=== PATIENT | male | born 1950 | race Caucasian/White ===

== ENCOUNTER 2020-10-27 14:49 | Inpatient (IN) | payer MEDICARE, OTHER ==
[~2020-10-27] VITALS: Ht 165.1 cm; Wt 74.8 kg
--- NOTE | 2020-10-27 14:55 | NUR ---
[id number] FROM HOME FOR SOB, COVID +, BG 450. VS CHECKED. IV ACCESS ON L AC G18. BLOOD DRAW DONE SENT TO LAB. O2 ADMINISTERED 4L/MIN. SATTING AT 97%
[2020-10-27] MEDS ORDERED: DEXAMETHASONE SOD PHOSPHATE 10 MG/ML VIAL IV ONE (15:00)
[2020-10-27] MEDS ORDERED: CEFEPIME 1 GM in IV D5W 50 ML IV ONE (15:00)
[2020-10-27] MEDS ORDERED: VANCOMYCIN 1 GM in IV D5W 250 ML IV ONE (15:00)
[2020-10-27 15:25] LABS: HEMATOCRIT 33 % (39-51); HEMOGLOBIN 11.2 g/dL (13.5-17.5); MEAN CORPUSCULAR HGB CONC 34 g/dl (31.0-36.0); MEAN CORPUSCULAR VOLUME 89 fL (80-96); NEUTROPHILS % (AUTO) 85.8 % (43.0-81.0); PLATELET COUNT (AUTO) 164 /CMM (150-450); RED BLOOD CELL COUNT(AUTO) 3.71 MIL/uL (4.5-6.0)
[2020-10-27 15:26] LABS: BASOPHILS % (AUTO) 0.4 % (0.0-2.0); EOSINOPHILS % (AUTO) 0.1 % (0.0-6.0); LYMPHOCYTES # (AUTO) 0.7 /CMM (0.8-4.8); LYMPHOCYTES % (AUTO) 9.9 % (20.0-44.0); MONOCYTES # (AUTO) 0.3 /CMM (0.1-1.30); MONOCYTES % (AUTO) 3.8 % (2.0-12.0)
[2020-10-27] MEDS ORDERED: DEXAMETHASONE SOD PHOSPHATE 10 MG/ML VIAL ONE (15:30)
[2020-10-27 15:38] LABS: SODIUM SERUM 132 mmol/L (136-145)
[2020-10-27 15:39] LABS: ALANINE AMINOTRANSFERASE 83 U/L (12-78); ALBUMIN 2.7 g/dL (3.4-5.0); ALKALINE PHOSPHATASE 61 U/L (46-116); ASPARTATE AMINOTRANSFERASE 69 U/L (15-37); BILIRUBIN,DIRECT 0.3 mg/dL (0.0-0.2); BILIRUBIN,TOTAL 0.6 mg/dL (0.2-1.0); CALCIUM, SERUM 8.4 mg/dL (8.5-10.1); CARBON DIOXIDE 29 mmol/L (21-32); CHLORIDE 93 mmol/L (98-107); CREATININE 1.2 mg/dL (0.6-1.3); POTASSIUM 3.4 mmol/L (3.5-5.1); TOTAL PROTEIN, SERUM 7.2 g/dL (6.4-8.2); UREA NITROGEN, BLOOD 18 mg/dL (7-18)
[2020-10-27 15:40] LABS: GLUCOSE 392 mg/dL (74-106)
[2020-10-27] MEDS ORDERED: SITA1TAB6 MT (16:00)
[2020-10-27] MEDS ORDERED: TERA5CAP4 PO (16:00)
[2020-10-27] MEDS ORDERED: RAMI5CAP66 PO (16:00)
[2020-10-27] MEDS ORDERED: ASPI-1420 PO (16:00)
[2020-10-27] MEDS ORDERED: FURO20TA4 PO (16:00)
[2020-10-27] MEDS ORDERED: CARV25TA2 PO (16:00)
[2020-10-27] MEDS ORDERED: TICA90TA PO (16:00)
[2020-10-27] MEDS ORDERED: ROSU20TA32 PO (16:00)
[2020-10-27] MEDS ORDERED: DILT-2 PO (16:00)
[2020-10-27] MEDS ORDERED: GLIP10TA21 PO (16:00)
[2020-10-27] MEDS ORDERED: INSU3INS9 SQ (16:00)
[2020-10-27] MEDS ORDERED: TAMS-12 PO (16:00)
[2020-10-27 16:01] LABS: ABG BASE EXCESS -0.2 mmol/L; ABG OXYGEN SATURATION 91.9 % (92.0-98.5); ABG PCO2 29.4 mmHg (35.0-45.0); ABG PH 7.498 (7.350-7.450); ABG PO2 64.5 mmHg (75.0-100.0); AaDO2 158.1 mmHg; COHb 0.4 % (0.5-1.5); MetHb 0.3 % (0.0-1.5); O2Hb 91.3 % (94.0-97.0); SITE, ABG Right Radial; VENT MODE, BG NC 4 L
--- NOTE | 2020-10-27 16:17 | NUR ---
CALLED NURSING SUP FOR TELE BED.
[2020-10-27] MEDS ORDERED: INSULIN REGULAR, HUMAN 100 UNIT/ML 10 ML VIAL SQ ONE (16:30)
--- NOTE | 2020-10-27 16:39 | NUR ---
urine collected sent to lab
[2020-10-27] MEDS ORDERED: POTASSIUM CL. PREMIX PERIPHER. 100 ML ONE (16:44)
[2020-10-27] MEDS: POTASSIUM CL. PREMIX PERIPHER. 50 ML IV SCH ×2 (16:45→17:45)
[2020-10-27 16:56] LABS: BILIRUBIN,URINE NEGATIVE (NEGATIVE); COLOR,URINE YELLOW (YELLOW); LEUKOCYTE ESTERASE ,URINE NEGATIVE (NEGATIVE); NITRITE, URINE NEGATIVE (NEGATIVE); PROTEIN,URINE 30 mg/dl (NEGATIVE); UGLUCOSE >=1000 mg/dL (NEGATIVE); UROBILINOGEN,URINE 0.2 EU/dL (0.2)
[2020-10-27 17:16] LABS: BACTERIA,URINE Few /HPF (None Seen); RBC,URINE 0-2 /HPF (0-2); SQUAMOUS EPITHELIAL CELL,UR Few /HPF (None Seen); WBC,URINE 0-2 /HPF (0-3)
--- NOTE | 2020-10-27 17:18 | NUR ---
room [id number]
[2020-10-27] MEDS ORDERED: ONDANSETRON HCL/PF 4 MG/2 ML VIAL IVP PRN (17:30)
[2020-10-27] MEDS ORDERED: ZOLPIDEM TARTRATE 5 MG TABLET PO PRN (17:30)
[2020-10-27] MEDS ORDERED: IV NS 0.9% 1,000 ML BAG IV ONE (17:30)
[2020-10-27] MEDS ORDERED: MAGNESIUM HYDROXIDE 30 ML UDC PO PRN (17:30)
[2020-10-27] MEDS ORDERED: ACETAMINOPHEN 325 MG TABLET PO PRN (17:30)
[2020-10-27] MEDS ORDERED: DEXTROSE 50%-WATER 50 ML DISP.SYRIN IV PRN (17:30)
[2020-10-27] MEDS ORDERED: Z GUARD REMEDY 2 OZ OINT TP PRN (17:30)
[2020-10-27] MEDS ORDERED: HYDROCODONE/APAP 5/325MG TABLET PO PRN (17:30)
[2020-10-27] MEDS ORDERED: MAG HYDROX/AL HYDROX/SIMETH 30 ML UDC PO PRN (17:30)
[2020-10-27] MEDS ORDERED: CEFEPIME 1 GM in IV D5W 50 ML IV SCH (18:00)
--- NOTE | 2020-10-27 18:26 | NUR ---
called to give report but nmurse is not available yet.
--- NOTE | 2020-10-27 18:52 | NUR ---
report given to timothy paulino
--- NOTE | 2020-10-27 19:10 | NUR ---
RN OPENING NOTE ADMIT 70 YEAR OLD LITHUANIAN MALE,TO [facility] ON TELEMETRY MONITORING,FOR SOB DIAGNOSIS:PNA PATIENT R/O FOR COVID MONITORING FOR CONTACT/DROPLET PRECAUTION,ON 5L OXYGEN VIA NASAL CANNULA O2:93% ALERT ORIENTED X3 VERBALLY RESPONSIVE LITHUANIAN SPEAKER ONLY,CONTINENT TO BOWEL/BLADDER,IV SITE IS ON LEFT AC #18 INTACT PATENT,SAFETY MEASURE IMPLEMENT,BED IS IN LOW POSITION,AND LOCKED,CALL LIGHT WITHIN REACH,CONTINUE TO MONITOR.
--- NOTE | 2020-10-27 19:20 | NUR ---
TRANSFERRED TO [facility]
[2020-10-27 21:00] VITALS: BP 144/51
[2020-10-27] MEDS: DILTIAZEM HCL CD 120 MG PO SCH (21:10)
[2020-10-27] MEDS: ENOXAPARIN SODIUM 40 MG/0.4 ML DISP.SYRIN SQ SCH (21:12)
[2020-10-27] MEDS: BLOOD SUGAR DIAGNOSTIC 1 EACH STRIP VI SCH (22:00)
[2020-10-27] MEDS: INSULIN GLARGINE, 100 UNIT/ML CARTRIDGE SQ SCH (22:54)
[2020-10-28 01:00] VITALS: BP 145/65
[2020-10-28] MEDS: CEFEPIME 2 GM in IV D5W 100 ML IV SCH ×2 (02:40→15:02)
[2020-10-28 05:00] VITALS: BP 157/69
[2020-10-28 06:03] LABS: BASOPHILS % (AUTO) 0.2 % (0.0-2.0); HEMATOCRIT 33 % (39-51); HEMOGLOBIN 11.2 g/dL (13.5-17.5); LYMPHOCYTES # (AUTO) 0.5 /CMM (0.8-4.8); LYMPHOCYTES % (AUTO) 8.6 % (20.0-44.0); MEAN CORPUSCULAR HGB CONC 34 g/dl (31.0-36.0); MEAN CORPUSCULAR VOLUME 88 fL (80-96); MONOCYTES # (AUTO) 0.3 /CMM (0.1-1.30); MONOCYTES % (AUTO) 5.6 % (2.0-12.0); NEUTROPHILS # (AUTO) 5.2 /CMM (1.8-8.9); NEUTROPHILS % (AUTO) 85.6 % (43.0-81.0); PLATELET COUNT (AUTO) 187 /CMM (150-450); RED BLOOD CELL COUNT(AUTO) 3.75 MIL/uL (4.5-6.0); WHITE BLOOD COUNT (AUTO) 6.1 K/uL (4.3-11.0)
[2020-10-28 06:16] LABS: CALCIUM, SERUM 8.5 mg/dL (8.5-10.1); CREATININE 0.8 mg/dL (0.6-1.3); MAGNESIUM 1.6 mg/dL (1.8-2.4); PHOSPHORUS 3.3 mg/dL (2.5-4.9); POTASSIUM 3.6 mmol/L (3.5-5.1)
--- NOTE | 2020-10-28 07:07 | NUR ---
RN CLOSING NOTE PATIENT REMAINS ON ALERT ORIENTED X4 VERBALLY RESPONSIVE PERSIAN SPEAKER ONLY HE IS ON 5L OXYGEN VIA NASAL CANNULA,O2:92% IV SITE IS ON LEFT AC INTACT PATENT,ALL DUE MEDS GIVEN MD ORDERED KEPT CLEAN AND DRY ALL THE TIME,KEPT COMFORTABLE,KEPT CLEAN AND DRY ALL THE TIME,ALL NEED MET ENDORSE NEXT COMING SHIFT FOR CONTINUATION OF CARE
[2020-10-28] MEDS: BLOOD SUGAR DIAGNOSTIC 1 EACH STRIP VI SCH ×4 (07:30→22:33)
--- NOTE | 2020-10-28 07:30 | NUR ---
RN OPENING NOTE PATIENT ALERT ORIENTED X4 VERBALLY RESPONSIVE PALAUAN SPEAKER. HE IS ON 5L OXYGEN VIA NASAL CANNULA,O2:92% IV SITE IS ON LEFT AC INTACT PATENT. ALL SAFETY MEASURES IN PLACE PER HOSPITAL POLICY. CALL LIGHT WITHIN REACH. WILL CONTINUE TO MONITOR AND PROVIDE CARE.
--- NOTE | 2020-10-28 08:15 | NUR ---
MED REFUSAL/AMA PATIENT REFUSED AM ACCUCHECK. EXPLAINED RISKS OF HYPER/HYPOGLYCEMIA. PATIENT REFUSED. PATIENT ALSO ASKED TO LEAVE AGAINST MEDICAL ADVICE. EDUCATION PROVIDED, PATIENT CONTINUED TO REQUEST TO LEAVE. AMA FORM SIGNED.
[2020-10-28 09:00] VITALS: BP 164/73
[2020-10-28] MEDS ORDERED: Medication Not On Formulary EA (Insulin Glargine/Lixisenatide (Soliqua 100 Unit-33 Mcg/m SQ SCH (09:00)
--- NOTE | 2020-10-28 09:10 | NUR ---
AMA UPDATE PATIENT STATED THEY CHANGED THEIR MIND ABOUT THE AMA AND REQUESTED TO STAY UNTIL SEEN BY DOCTOR.
[2020-10-28] MEDS: TAMSULOSIN 0.4 MG CAP.SR.24H PO SCH (09:48)
[2020-10-28] MEDS: ASPIRIN EC 81 MG TABLET.DR PO SCH (09:48)
[2020-10-28] MEDS: DEXAMETHASONE SOD PHOSPHATE 10 MG/ML VIAL IJ SCH (09:49)
[2020-10-28] MEDS: CARVEDILOL 12.5 MG TABLET PO SCH ×2 (09:50→17:29)
[2020-10-28] MEDS: DILTIAZEM HCL CD 120 MG PO SCH ×2 (09:50→22:28)
[2020-10-28] MEDS: TERAZOSIN HCL 5 MG CAPSULE PO SCH (11:38)
[2020-10-28] MEDS: TICAGRELOR 90 MG TABLET PO SCH (11:39)
[2020-10-28] MEDS: Magnesium 1GM/D5W 100ML PREMIX 100 ML IV SCH ×2 (12:12→13:40)
[2020-10-28 13:00] VITALS: BP 160/70
[2020-10-28] MEDS ORDERED: REMDESIVIR (CHARGED) 200 MG, *LOADING DOSE 1 EA in IV NS 0.9% 210 ML IV ONE (16:00)
[2020-10-28] MEDS: RAMIPRIL 5 MG CAPSULE PO SCH (16:32)
[2020-10-28] MEDS: FUROSEMIDE 20 MG TABLET PO SCH (16:32)
[2020-10-28 17:00] VITALS: BP 154/65
[2020-10-28] MEDS: AZITHROMYCIN 500 MG in IV D5W 250 ML IV SCH (17:28)
[2020-10-28] MEDS: ATORVASTATIN 40 MG TABLET PO SCH (17:28)
[2020-10-28] MEDS: INSULIN REGULAR, HUMAN 100 UNIT/ML 3 ML VIAL SQ PRN (17:30)
--- NOTE | 2020-10-28 19:08 | NUR ---
RN CLOSING NOTE PATIENT ALERT ORIENTED X4 VERBALLY RESPONSIVE NIGERIAN SPEAKER. HE IS ON 5L OXYGEN VIA NASAL CANNULA,O2:92% IV SITE IS ON LEFT AC INTACT PATENT. ALL SAFETY MEASURES IN PLACE PER HOSPITAL POLICY. CALL LIGHT WITHIN REACH. WILL ENDORSE TO RAIL PROJECT ENGINEER FOR MEME.
[2020-10-28 21:00] VITALS: BP 136/72
[2020-10-28] MEDS: CEFTRIAXONE 1 G in IV D5W 50 ML IV SCH (22:26)
[2020-10-28] MEDS: ENOXAPARIN SODIUM 40 MG/0.4 ML DISP.SYRIN SQ SCH (22:29)
[2020-10-28] MEDS: *INSULIN REGULAR(HUMULIN R)HUM 100 UNIT/ML VIAL SQ PRN (22:37)
[2020-10-28] MEDS: INSULIN GLARGINE, 100 UNIT/ML CARTRIDGE SQ SCH (22:38)
[2020-10-29 01:00] VITALS: BP 147/61
--- NOTE | 2020-10-29 01:15 | NUR ---
journalism professor note Spoke with Nicole from lab.,pt prelim blood culture, aerobic gram positive cocci in cluster. notified. Pt on already on atb therapy.
[2020-10-29 05:00] VITALS: BP 150/66
--- NOTE | 2020-10-29 06:39 | NUR ---
LEGAL SUPPORT MANAGER NOTE PT IN BED, SLEEPING BUT EASILY AROUSABLE .BREATHING EVEN AND UNLABORED ON NBR 15L. NO SOB OR ACUTE DISTRESS NOTED. DENIES ANY PAIN OR DISCOMFORT.LEFT AC IV SITE PATENT AND INTACT. ALL NEEDS RENDERED. CALL LIGHT WITHIN REACH. BED IN LOWEST POSITION. WILL ENDORSE TO AM NURSE FOR CONTINUITY OF CARE
[2020-10-29 06:41] LABS: BASOPHILS % (AUTO) 0.1 % (0.0-2.0); HEMATOCRIT 34 % (39-51); HEMOGLOBIN 11.6 g/dL (13.5-17.5); LYMPHOCYTES # (AUTO) 0.6 /CMM (0.8-4.8); MEAN CORPUSCULAR HGB CONC 34 g/dl (31.0-36.0); MEAN CORPUSCULAR VOLUME 87 fL (80-96); MONOCYTES # (AUTO) 0.4 /CMM (0.1-1.30); NEUTROPHILS # (AUTO) 7.8 /CMM (1.8-8.9); NEUTROPHILS % (AUTO) 87.9 % (43.0-81.0); PLATELET COUNT (AUTO) 244 /CMM (150-450); RED BLOOD CELL COUNT(AUTO) 3.88 MIL/uL (4.5-6.0); WHITE BLOOD COUNT (AUTO) 8.9 K/uL (4.3-11.0)
[2020-10-29 06:56] LABS: ALBUMIN 2.7 g/dL (3.4-5.0); BILIRUBIN,DIRECT 0.3 mg/dL (0.0-0.2); BILIRUBIN,TOTAL 0.5 mg/dL (0.2-1.0); CREATININE 0.7 mg/dL (0.6-1.3); MAGNESIUM 2.1 mg/dL (1.8-2.4); PHOSPHORUS 3.1 mg/dL (2.5-4.9); POTASSIUM 3.1 mmol/L (3.5-5.1); TOTAL PROTEIN, SERUM 7.4 g/dL (6.4-8.2)
[2020-10-29] MEDS: BLOOD SUGAR DIAGNOSTIC 1 EACH STRIP VI SCH ×4 (07:30→22:11)
--- NOTE | 2020-10-29 07:30 | NUR ---
CHIEF DESIGN DRAFTER OPENING NOTES PATIENT ALERT ORIENTED X4 VERBALLY RESPONSIVE KYRGYZ SPEAKER. HE IS ON 5L OXYGEN VIA NASAL CANNULA,O2:92% IV SITE IS ON LEFT AC INTACT PATENT. NOT IN ANY ACUTE DISTRESS. ALL SAFETY MEASURES IN PLACE PER HOSPITAL POLICY. CALL LIGHT WITHIN REACH. WILL CONTINUE TO MONITOR.
[2020-10-29 07:44] LABS: C-REACTIVE PROTEIN 8.2 mg/dL (0.0-0.9)
[2020-10-29] MEDS: ASPIRIN EC 81 MG TABLET.DR PO SCH (08:18)
[2020-10-29] MEDS: DILTIAZEM HCL CD 120 MG PO SCH ×2 (08:19→20:23)
[2020-10-29] MEDS: TAMSULOSIN 0.4 MG CAP.SR.24H PO SCH (08:19)
[2020-10-29] MEDS: DEXAMETHASONE SOD PHOSPHATE 10 MG/ML VIAL IJ SCH (08:20)
[2020-10-29] MEDS: FUROSEMIDE 20 MG TABLET PO SCH (08:20)
[2020-10-29] MEDS: CARVEDILOL 12.5 MG TABLET PO SCH ×2 (08:20→18:12)
[2020-10-29] MEDS: RAMIPRIL 5 MG CAPSULE PO SCH (08:24)
[2020-10-29] MEDS: TICAGRELOR 90 MG TABLET PO SCH (08:24)
[2020-10-29] MEDS: TERAZOSIN HCL 5 MG CAPSULE PO SCH (08:25)
[2020-10-29 09:00] VITALS: BP 128/74
[2020-10-29] MEDS ORDERED: POTASSIUM CHLORIDE 20 MEQ TAB.PRT.SR PO ONE (09:00)
[2020-10-29] MEDS: INSULIN REGULAR, HUMAN 100 UNIT/ML 3 ML VIAL SQ PRN ×2 (11:02→18:38)
[2020-10-29] MEDS: *INSULIN REGULAR(HUMULIN R)HUM 100 UNIT/ML VIAL SQ PRN ×2 (12:37→22:14)
[2020-10-29 13:00] VITALS: BP 132/75
[2020-10-29 17:00] VITALS: BP 132/75
[2020-10-29] MEDS: AZITHROMYCIN 500 MG in IV D5W 250 ML IV SCH (18:09)
[2020-10-29] MEDS: REMDESIVIR (CHARGED) 100 MG in IV NS 0.9% 230 ML IV SCH (18:09)
[2020-10-29] MEDS: ATORVASTATIN 40 MG TABLET PO SCH (18:12)
[2020-10-29] MEDS: VANCOMYCIN HCL 0.75 GM in IV D5W 250 ML IV SCH (18:35)
--- NOTE | 2020-10-29 18:52 | NUR ---
SYSTEMS INTEGRATION ENGINEER CLOSING NOTES PATIENT REMAINS ALERT ORIENTED X4 VERBALLY RESPONSIVE AND FINNISH SPEAKER. ON NONREBREATHER MASK AT 15 L. IV SITE IS ON LEFT AC INTACT PATENT. ALL SAFETY MEASURES IN PLACE PER HOSPITAL POLICY. CALL LIGHT WITHIN REACH. WILL ENDORSE TO OUTREACH ASSOCIATE FOR MEME.
--- NOTE | 2020-10-29 20:00 | NUR ---
local telephone operator note Received in bed, a/o x4. Breathing even and unlabored with no sob or acute distress noted on 15L of O2 via NBR. O2 saturation 99%. NSR on chief lock operator. Denies any pain or discomfort. LAC iv site patent and intact. All needs rendered. Call light within reach. Bed in lowest position. Will continue to monitor.
[2020-10-29] MEDS: CEFTRIAXONE 1 G in IV D5W 50 ML IV SCH (20:22)
[2020-10-29] MEDS: ENOXAPARIN SODIUM 40 MG/0.4 ML DISP.SYRIN SQ SCH (20:24)
[2020-10-29 21:00] VITALS: BP 146/90
[2020-10-29] MEDS: INSULIN GLARGINE, 100 UNIT/ML CARTRIDGE SQ SCH (22:13)
[2020-10-30] VITALS (7 sets, daily range): BP systolic 132–157; BP diastolic 73–82
[2020-10-30] MEDS: VANCOMYCIN HCL 0.75 GM in IV D5W 250 ML IV SCH ×2 (05:03→17:55)
[2020-10-30 06:32] LABS: BASOPHILS % (AUTO) 0.3 % (0.0-2.0); HEMATOCRIT 33 % (39-51); HEMOGLOBIN 11.2 g/dL (13.5-17.5); LYMPHOCYTES # (AUTO) 0.5 /CMM (0.8-4.8); LYMPHOCYTES % (AUTO) 5.9 % (20.0-44.0); MEAN CORPUSCULAR HGB CONC 34 g/dl (31.0-36.0); MEAN CORPUSCULAR VOLUME 89 fL (80-96); MONOCYTES # (AUTO) 0.4 /CMM (0.1-1.30); MONOCYTES % (AUTO) 3.8 % (2.0-12.0); NEUTROPHILS # (AUTO) 8.4 /CMM (1.8-8.9); PLATELET COUNT (AUTO) 261 /CMM (150-450); RED BLOOD CELL COUNT(AUTO) 3.74 MIL/uL (4.5-6.0); WHITE BLOOD COUNT (AUTO) 9.3 K/uL (4.3-11.0)
--- NOTE | 2020-10-30 06:32 | NUR ---
telegraph plant maintainer note Patient in bed. Sleeping but easily arousable. Breathing even and unlabored with no sob or acute distress noted on 15L via NRB. O2 saturation 99%. Pt appears comfortable in bed. LAC Iv site patent and intact. All needs rendered. Bed in lowest position. Call light within reach. Will endorse to am nurse for continuity of care.
[2020-10-30 06:59] LABS: ALBUMIN 2.5 g/dL (3.4-5.0); BILIRUBIN,DIRECT 0.2 mg/dL (0.0-0.2); BILIRUBIN,TOTAL 0.4 mg/dL (0.2-1.0); CALCIUM, SERUM 8.6 mg/dL (8.5-10.1); CREATININE 0.7 mg/dL (0.6-1.3); TOTAL PROTEIN, SERUM 7.2 g/dL (6.4-8.2)
[2020-10-30 07:48] LABS: ABG BASE EXCESS -3.4 mmol/L; ABG OXYGEN SATURATION 98.5 % (92.0-98.5); ABG PCO2 28.2 mmHg (35.0-45.0); ABG PH 7.449 (7.350-7.450); ABG PO2 125.2 mmHg (75.0-100.0); AaDO2 559.6 mmHg; COHb 0.8 % (0.5-1.5); MetHb 0.3 % (0.0-1.5); O2Hb 97.4 % (94.0-97.0); SITE, ABG Right Radial; VENT MODE, BG NON REBREATHER
--- NOTE | 2020-10-30 07:55 | NUR ---
RN OPENING NOTES PATIENT IS IN BED. ALERT ORIENTED X4 ROMANIAN SPEAKING. PT IS MASK:94% IV SITE IS ON LEFT AC INTACT PATENT. NOT IN ANY ACUTE DISTRESS. ALL SAFETY MEASURES IN PLACE PER HOSPITAL POLICY. BED IS IN THE LOWEST POSITION. LOCKED AND SIDE RAILS ARE UP X2.CALL LIGHT WITHIN REACH. WILL CONTINUE TO MONITOR
[2020-10-30] MEDS: ASPIRIN EC 81 MG TABLET.DR PO SCH (09:50)
[2020-10-30] MEDS: BLOOD SUGAR DIAGNOSTIC 1 EACH STRIP VI SCH ×4 (09:50→21:21)
[2020-10-30] MEDS: FUROSEMIDE 20 MG TABLET PO SCH (09:50)
[2020-10-30] MEDS: DEXAMETHASONE SOD PHOSPHATE 10 MG/ML VIAL IJ SCH (09:50)
[2020-10-30] MEDS: DILTIAZEM HCL CD 120 MG PO SCH ×2 (09:51→20:26)
[2020-10-30] MEDS: TAMSULOSIN 0.4 MG CAP.SR.24H PO SCH (09:51)
[2020-10-30] MEDS: CARVEDILOL 12.5 MG TABLET PO SCH ×2 (09:52→17:55)
[2020-10-30] MEDS: TERAZOSIN HCL 5 MG CAPSULE PO SCH (09:57)
[2020-10-30] MEDS: RAMIPRIL 5 MG CAPSULE PO SCH (09:57)
[2020-10-30] MEDS: TICAGRELOR 90 MG TABLET PO SCH (09:57)
[2020-10-30] MEDS: INSULIN REGULAR, HUMAN 100 UNIT/ML 3 ML VIAL SQ PRN ×3 (10:30→18:23)
--- NOTE | 2020-10-30 14:00 | NUR ---
RN NOTES PT HAS NO RESPIRATORY DISTRESS OR SOB
[2020-10-30] MEDS: ATORVASTATIN 40 MG TABLET PO SCH (17:55)
[2020-10-30] MEDS: AZITHROMYCIN 500 MG in IV D5W 250 ML IV SCH (17:55)
[2020-10-30] MEDS: REMDESIVIR (CHARGED) 100 MG in IV NS 0.9% 230 ML IV SCH (17:55)
--- NOTE | 2020-10-30 18:53 | NUR ---
RN CLOSING NOTES PATIENT IS IN BED. ALERT ORIENTED X4 KISWAHILI SPEAKING. PT IS ON 15 L NON-BREATHER MASK:95% IV SITE IS ON LEFT AC INTACT PATENT. NOT IN ANY ACUTE DISTRESS. ALL SAFETY MEASURES IN PLACE PER HOSPITAL POLICY. BED IS IN THE LOWEST POSITION. LOCKED AND SIDE RAILS ARE UP X2.CALL LIGHT WITHIN REACH. WILL ENDORSE TO PM NURSE FOR MEME
--- NOTE | 2020-10-30 19:30 | NUR ---
LEGAL CASHIER OPENING NOTES RECEIVED PATIENT IN BED, ALERT AND ORIENTED X 3. VERBALLY RESPONSIVE AND ABLE TO FOLLOW DIRECTIONS. BREATHING REGULAR AND UNLABORED ON NON-REBREATHER MASK AT 15L/MIN, LATEST SPO2 99%. LEFT AC G18 IV LINE INTACT AND PATENT, FLUSHING WELL WITH NO BLEEDING OR S/S OF INFILTRATION NOTED. ON CARDIAC MONITORING WITH NSR AT 65bpm. DENIES PAIN/DISCOMFORT AT THIS TIME. BED LOW AND LOCKED ON SEMI FOWLERS POSITION. CALL LIGHT IN REACH. ON ISOLATION FOR COVID19, PROPER HAND WASHING AND ISOLATION PRECAUTIONS OBSERVED. WILL CONTINUE TO MONITOR.
--- NOTE | 2020-10-30 20:00 | NUR ---
PARKING LOT CHAUFFEUR NOTES INSERTED NEW IV LINE ON RIGHT FOREARM G22, FLUSHING WELL WITH GOOD BLOOD BACKFLOW.
[2020-10-30] MEDS: CEFTRIAXONE 1 G in IV D5W 50 ML IV SCH (20:25)
[2020-10-30] MEDS: ENOXAPARIN SODIUM 40 MG/0.4 ML DISP.SYRIN SQ SCH (20:40)
[2020-10-30] MEDS: INSULIN GLARGINE, 100 UNIT/ML CARTRIDGE SQ SCH (21:22)
[2020-10-30] MEDS: *INSULIN REGULAR(HUMULIN R)HUM 100 UNIT/ML VIAL SQ PRN (21:25)
[2020-10-31 01:00] VITALS: BP 148/64
[2020-10-31 05:00] VITALS: BP 148/89
--- NOTE | 2020-10-31 06:35 | NUR ---
MANAGER RESEARCH DEVELOPMENT CLOSING NOTES PATIENT IN BED, ALERT AND ORIENTED X 3. AFEBRILE WITH NO S/S OF DISTRESS OBSERVED. RIGHT HAND G20 IV LINE PATENT AND FLUSHING WELL. MAINTAINED ON CARDIAC MONITORING WITH NSR AT 68bpm. NO COMPLAINTS OF PAIN/DISCOMFORT REPORTED AT THIS TIME. BED LOW AND LOCKED ON SEMI FOWLERS POSITION. CALL LIGHT IN REACH. WILL ENDORSE TO MORNING SHIFT FOR MEME.
[2020-10-31 06:49] LABS: BASOPHILS % (AUTO) 0.1 % (0.0-2.0); HEMATOCRIT 35 % (39-51); HEMOGLOBIN 11.8 g/dL (13.5-17.5); LYMPHOCYTES # (AUTO) 0.5 /CMM (0.8-4.8); LYMPHOCYTES % (AUTO) 4.6 % (20.0-44.0); MEAN CORPUSCULAR HGB CONC 34 g/dl (31.0-36.0); MEAN CORPUSCULAR VOLUME 87 fL (80-96); MONOCYTES # (AUTO) 0.3 /CMM (0.1-1.30); MONOCYTES % (AUTO) 2.5 % (2.0-12.0); NEUTROPHILS # (AUTO) 9.3 /CMM (1.8-8.9); NEUTROPHILS % (AUTO) 92.8 % (43.0-81.0); PLATELET COUNT (AUTO) 275 /CMM (150-450); RED BLOOD CELL COUNT(AUTO) 3.95 MIL/uL (4.5-6.0); WHITE BLOOD COUNT (AUTO) 10.1 K/uL (4.3-11.0)
[2020-10-31 07:22] LABS: CALCIUM, SERUM 8.6 mg/dL (8.5-10.1); CREATININE 0.6 mg/dL (0.6-1.3); POTASSIUM 3.7 mmol/L (3.5-5.1)
--- NOTE | 2020-10-31 08:04 | NUR ---
SUPPLY CHAIN TECHNICIAN OPEN NOTES PATIENT IS AWAKE A/O X 3 WITH NO SIGNS OF DISTRESS ON A NON-REBREATHER AT 15 L/MIN SPO2 97%. IV R HAND #20G SL. NO COMPLAIN OF PAIN AT THIS TIME. TELE MONITOR NSR. SAFETY MEASURES ARE APPLIED, BED IS IN LOW POSITION SIDE RAILS UP X 2. CALL LIGHT WITHIN REACH. WILL CONTINUE TO MONITOR.
[2020-10-31] MEDS: VANCOMYCIN HCL 0.75 GM in IV D5W 250 ML IV SCH (08:36)
[2020-10-31 08:50] LABS: ABG BASE EXCESS -3.7 mmol/L; ABG PCO2 27.9 mmHg (35.0-45.0); ABG PH 7.446 (7.350-7.450); ABG PO2 64.3 mmHg (75.0-100.0); AaDO2 476.8 mmHg; COHb 1.4 % (0.5-1.5); MetHb 0.3 % (0.0-1.5); O2Hb 91.4 % (94.0-97.0); SITE, ABG Right Radial; VENT MODE, BG NRB
[2020-10-31 09:00] VITALS: BP 145/80
[2020-10-31 09:04] LABS: ALBUMIN 2.6 g/dL (3.4-5.0); BILIRUBIN,DIRECT 0.2 mg/dL (0.0-0.2); BILIRUBIN,TOTAL 0.5 mg/dL (0.2-1.0); TOTAL PROTEIN, SERUM 7.4 g/dL (6.4-8.2)
[2020-10-31] MEDS: RAMIPRIL 5 MG CAPSULE PO SCH (09:14)
[2020-10-31] MEDS: TICAGRELOR 90 MG TABLET PO SCH (09:15)
[2020-10-31] MEDS: TERAZOSIN HCL 5 MG CAPSULE PO SCH (09:16)
[2020-10-31] MEDS: BLOOD SUGAR DIAGNOSTIC 1 EACH STRIP VI SCH ×4 (09:17→21:51)
[2020-10-31] MEDS: TAMSULOSIN 0.4 MG CAP.SR.24H PO SCH (09:17)
[2020-10-31] MEDS: FUROSEMIDE 20 MG TABLET PO SCH (09:17)
[2020-10-31] MEDS: ASPIRIN EC 81 MG TABLET.DR PO SCH (09:17)
[2020-10-31] MEDS: DILTIAZEM HCL CD 120 MG PO SCH ×2 (09:17→20:47)
[2020-10-31] MEDS: DEXAMETHASONE SOD PHOSPHATE 10 MG/ML VIAL IJ SCH (09:18)
[2020-10-31] MEDS: INSULIN REGULAR, HUMAN 100 UNIT/ML 3 ML VIAL SQ PRN ×3 (09:20→16:52)
[2020-10-31] MEDS: CARVEDILOL 12.5 MG TABLET PO SCH ×2 (09:41→16:49)
[2020-10-31 13:00] VITALS: BP 137/57
[2020-10-31] MEDS: REMDESIVIR (CHARGED) 100 MG in IV NS 0.9% 230 ML IV SCH (16:48)
[2020-10-31] MEDS: ATORVASTATIN 40 MG TABLET PO SCH (16:53)
[2020-10-31 17:00] VITALS: BP 128/75
[2020-10-31] MEDS: AZITHROMYCIN 500 MG in IV D5W 250 ML IV SCH (17:54)
[2020-10-31] MEDS: VANCOMYCIN 1 GM in IV D5W 250 ML IV SCH (19:18)
--- NOTE | 2020-10-31 19:55 | NUR ---
RN NOTES PATIENT IS AWAKE A/O X 3. RESPIRATIONS EVEN AND UNLABORED. ON O2 VIA NON-REBREATHER @ 15LPM, SPO2 97%. IV R HAND #20G SL, INTACT AND PATENT. DENIES ANY PAIN OR DISCOMFORT AT THIS TIME. TELE MONITOR NSR. BED LOCKED AND IN LOWEST POSITION. SIDE RAILS UP X2. SAFETY MEASURES IMPLEMENTED. CALL LIGHT WITHIN REACH. WILL CONTINUE TO MONITOR.
--- NOTE | 2020-10-31 20:14 | NUR ---
HARDWOOD FLOOR LAYER CLOSED NOTES PATIENT IS AWAKE A/O X 3 WITH NO SIGNS OF DISTRESS ON A NON-REBREATHER AT 15 L/MIN SPO2 97%. IV R FA #20G SL. NO COMPLAIN OF PAIN AT THIS TIME. TELE MONITOR NSR. PATIENT KEPT CLEAN AND DRY. ALL NEEDS, CARE, TREATMENT,AND MEDICATIONS WERE ADMINISTERED ANTICIPATED PER ORDER. SAFETY MEASURES ARE APPLIED, BED IS IN LOW POSITION SIDE RAILS UP X 2. CALL LIGHT WITHIN REACH WILL ENDORSE TO THE CANDLE EXTRUSION MACHINE OPERATOR NURSE.
[2020-10-31] MEDS: ENOXAPARIN SODIUM 40 MG/0.4 ML DISP.SYRIN SQ SCH (20:33)
[2020-10-31] MEDS: CEFTRIAXONE 1 G in IV D5W 50 ML IV SCH (20:47)
[2020-10-31 21:00] VITALS: BP 134/74
[2020-10-31] MEDS: *INSULIN REGULAR(HUMULIN R)HUM 100 UNIT/ML VIAL SQ PRN (21:44)
[2020-10-31] MEDS: INSULIN GLARGINE, 100 UNIT/ML CARTRIDGE SQ SCH (21:45)
[2020-11-01] VITALS (9 sets, daily range): BP systolic 118–154; BP diastolic 50–76
[2020-11-01] MEDS: VANCOMYCIN 1 GM in IV D5W 250 ML IV SCH (05:06)
--- NOTE | 2020-11-01 06:46 | NUR ---
RN NOTES PATIENT IS AWAKE A/O X 3. RESPIRATIONS EVEN AND UNLABORED. ON O2 VIA NON-REBREATHER @ 15LPM, SPO2 93%. PATIENT NEEDS FREQUENT REMINDERS TO PUT NON-REBREATHER ON. IV R HAND #20G SL, INTACT AND PATENT. DENIES ANY PAIN OR DISCOMFORT AT THIS TIME. TELE MONITOR NSR 70'S. ALL DUE MEDS GIVEN PER MD ORDER. NEEDS ATTENDED PROMPTLY. BED LOCKED AND IN LOWEST POSITION. SIDE RAILS UP X2. SAFETY MEASURES IMPLEMENTED. CALL LIGHT WITHIN REACH. WILL ENDORSE TO ONCOMING SHIFT.
--- NOTE | 2020-11-01 07:36 | NUR ---
EDGE STAINER OPEN NOTES PATIENT IS AWAKE A/O X 3 WITH NO SIGNS OF DISTRESS ON A NON-REBREATHER AT 15 L/MIN SPO2 98%. IV R FA #20G SL. NO COMPLAIN OF PAIN AT THIS TIME. TELE MONITOR NSR. SAFETY MEASURES ARE APPLIED, BED IS IN LOW POSITION SIDE RAILS UP X 2. CALL LIGHT WITHIN REACH. WILL CONTINUE TO MONITOR.
[2020-11-01 08:01] LABS: BASOPHILS % (AUTO) 0.4 % (0.0-2.0); EOSINOPHILS % (AUTO) 0.1 % (0.0-6.0); HEMATOCRIT 35 % (39-51); LYMPHOCYTES # (AUTO) 0.4 /CMM (0.8-4.8); LYMPHOCYTES % (AUTO) 4.8 % (20.0-44.0); MEAN CORPUSCULAR HGB CONC 34 g/dl (31.0-36.0); MEAN CORPUSCULAR VOLUME 87 fL (80-96); MONOCYTES # (AUTO) 0.2 /CMM (0.1-1.30); MONOCYTES % (AUTO) 2.3 % (2.0-12.0); NEUTROPHILS # (AUTO) 8.4 /CMM (1.8-8.9); NEUTROPHILS % (AUTO) 92.4 % (43.0-81.0); PLATELET COUNT (AUTO) 266 /CMM (150-450); RED BLOOD CELL COUNT(AUTO) 4.07 MIL/uL (4.5-6.0); WHITE BLOOD COUNT (AUTO) 9.1 K/uL (4.3-11.0)
[2020-11-01 08:27] LABS: ALBUMIN 2.6 g/dL (3.4-5.0); BILIRUBIN,DIRECT 0.2 mg/dL (0.0-0.2); BILIRUBIN,TOTAL 0.5 mg/dL (0.2-1.0); CALCIUM, SERUM 8.3 mg/dL (8.5-10.1); CREATININE 0.8 mg/dL (0.6-1.3); POTASSIUM 3.3 mmol/L (3.5-5.1); TOTAL PROTEIN, SERUM 7.3 g/dL (6.4-8.2)
[2020-11-01] MEDS: BLOOD SUGAR DIAGNOSTIC 1 EACH STRIP VI SCH ×4 (08:33→22:59)
[2020-11-01] MEDS: DEXAMETHASONE SOD PHOSPHATE 10 MG/ML VIAL IJ SCH (08:33)
[2020-11-01] MEDS: DILTIAZEM HCL CD 120 MG PO SCH ×2 (08:34→20:51)
[2020-11-01] MEDS: FUROSEMIDE 20 MG TABLET PO SCH (08:35)
[2020-11-01] MEDS: TAMSULOSIN 0.4 MG CAP.SR.24H PO SCH (08:35)
[2020-11-01] MEDS: ASPIRIN EC 81 MG TABLET.DR PO SCH (08:35)
[2020-11-01] MEDS: CARVEDILOL 12.5 MG TABLET PO SCH ×2 (08:35→16:44)
[2020-11-01] MEDS: RAMIPRIL 5 MG CAPSULE PO SCH (08:37)
[2020-11-01] MEDS: TICAGRELOR 90 MG TABLET PO SCH (08:37)
[2020-11-01] MEDS: TERAZOSIN HCL 5 MG CAPSULE PO SCH (08:38)
[2020-11-01] MEDS: *INSULIN REGULAR(HUMULIN R)HUM 100 UNIT/ML VIAL SQ PRN ×2 (08:41→22:54)
[2020-11-01] MEDS: POTASSIUM CHLORIDE 20 MEQ TAB.PRT.SR PO SCH ×2 (11:30→12:48)
[2020-11-01] MEDS ORDERED: POTASSIUM CHLORIDE 20 MEQ TAB.PRT.SR PO SCH (13:00)
[2020-11-01] MEDS: INSULIN REGULAR, HUMAN 100 UNIT/ML 3 ML VIAL SQ PRN ×2 (13:31→16:46)
[2020-11-01] MEDS: REMDESIVIR (CHARGED) 100 MG in IV NS 0.9% 230 ML IV SCH (15:44)
[2020-11-01] MEDS: ATORVASTATIN 40 MG TABLET PO SCH (16:52)
--- NOTE | 2020-11-01 19:30 | NUR ---
CASH APPLICATIONS REPRESENTATIVE CLOSED NOTES PATIENT IS AWAKE A/O X 3 WITH NO SIGNS OF DISTRESS ON A NON-REBREATHER AT 15 L/MIN SPO2 99%. IV R FA #20G SL. NO COMPLAIN OF PAIN AT THIS TIME. TELE MONITOR NSR. PATIENT KEPT CLEAN AND DRY. ALL NEEDS, CARE, TREATMENT,AND MEDICATIONS WERE ADMINISTERED ANTICIPATED PER ORDER. SAFETY MEASURES ARE APPLIED, BED IS IN LOW POSITION SIDE RAILS UP X 2. CALL LIGHT WITHIN REACH WILL ENDORSE TO THE RN ASSESSMENT NURSE.
--- NOTE | 2020-11-01 19:56 | NUR ---
RN NOTES PATIENT IS AWAKE A/O X 3. BREATHING EVEN AND UNLABORED. ON O2 VIA NON-REBREATHER @ 15LPM, SPO2 99%. IV R HAND #20G SL, INTACT AND PATENT. DENIES ANY PAIN OR DISCOMFORT AT THIS TIME. TELE MONITOR NSR. ALL NEEDS ATTENDED PROMPTLY. BED LOCKED AND IN LOWEST POSITION. SIDE RAILS UP X2. SAFETY MEASURES IMPLEMENTED. CALL LIGHT WITHIN REACH. WILL CONTINUE TO MONITOR.
[2020-11-01] MEDS: ENOXAPARIN SODIUM 40 MG/0.4 ML DISP.SYRIN SQ SCH (20:52)
[2020-11-01] MEDS: INSULIN GLARGINE, 100 UNIT/ML CARTRIDGE SQ SCH (22:55)
[2020-11-02] VITALS (9 sets, daily range): BP systolic 112–145; BP diastolic 47–77
[2020-11-02 06:18] LABS: BASOPHILS % (AUTO) 0.1 % (0.0-2.0); EOSINOPHILS % (AUTO) 0.1 % (0.0-6.0); HEMATOCRIT 38 % (39-51); HEMOGLOBIN 12.8 g/dL (13.5-17.5); LYMPHOCYTES # (AUTO) 0.4 /CMM (0.8-4.8); LYMPHOCYTES % (AUTO) 4.2 % (20.0-44.0); MEAN CORPUSCULAR HGB CONC 34 g/dl (31.0-36.0); MEAN CORPUSCULAR VOLUME 88 fL (80-96); MONOCYTES # (AUTO) 0.3 /CMM (0.1-1.30); MONOCYTES % (AUTO) 3.1 % (2.0-12.0); NEUTROPHILS # (AUTO) 9.2 /CMM (1.8-8.9); NEUTROPHILS % (AUTO) 92.5 % (43.0-81.0); PLATELET COUNT (AUTO) 339 /CMM (150-450); RED BLOOD CELL COUNT(AUTO) 4.33 MIL/uL (4.5-6.0); WHITE BLOOD COUNT (AUTO) 9.9 K/uL (4.3-11.0)
[2020-11-02 07:21] LABS: ALBUMIN 2.9 g/dL (3.4-5.0); BILIRUBIN,DIRECT 0.3 mg/dL (0.0-0.2); BILIRUBIN,TOTAL 0.6 mg/dL (0.2-1.0); CALCIUM, SERUM 8.9 mg/dL (8.5-10.1); CREATININE 0.8 mg/dL (0.6-1.3); POTASSIUM 3.4 mmol/L (3.5-5.1)
[2020-11-02 07:40] LABS: C-REACTIVE PROTEIN 4.8 mg/dL (0.0-0.9)
--- NOTE | 2020-11-02 07:42 | NUR ---
RN NOTES PATIENT IS AWAKE A/O X 3. BREATHING EVEN AND UNLABORED. ON O2 VIA NON-REBREATHER @ 15LPM, SPO2 94%. IV R HAND #20G SL, INTACT AND PATENT. DENIES ANY PAIN OR DISCOMFORT AT THIS TIME. TELE MONITOR NSR. ALL DUE MEDS GIVEN ORDERED BY MD AND TOLERATED WELL. NO ASE NOTED. BED LOCKED AND IN LOWEST POSITION. SIDE RAILS UP X2. SAFETY MEASURES IMPLEMENTED. CALL LIGHT WITHIN REACH. ENDORSED TO ONCOMING SHIFT
--- NOTE | 2020-11-02 08:00 | NUR ---
RN Opening note Received patient in bed, AO x 2-3, restlessness, removed gown, director of cardiac cath lab, able to responds all, Pt does no c/o pain or distress. Skin is warm to touch keep clean/dry intact IV site, respiratory even and unlabored with NRM at 15L. Kept locked bed with elevated HOB for aspiration precaution and ensure airway and lowest bed foe safety. Call light within reach, will continue to monitor.
[2020-11-02] MEDS: CARVEDILOL 12.5 MG TABLET PO SCH ×2 (08:30→17:25)
[2020-11-02] MEDS: ASPIRIN EC 81 MG TABLET.DR PO SCH (08:31)
[2020-11-02] MEDS: FUROSEMIDE 20 MG TABLET PO SCH (08:31)
[2020-11-02] MEDS: DILTIAZEM HCL CD 120 MG PO SCH ×2 (08:31→22:56)
[2020-11-02] MEDS: TAMSULOSIN 0.4 MG CAP.SR.24H PO SCH (08:31)
[2020-11-02] MEDS: DEXAMETHASONE SOD PHOSPHATE 10 MG/ML VIAL IJ SCH (08:31)
[2020-11-02] MEDS: TERAZOSIN HCL 5 MG CAPSULE PO SCH (08:36)
[2020-11-02] MEDS: TICAGRELOR 90 MG TABLET PO SCH (08:37)
[2020-11-02] MEDS: BLOOD SUGAR DIAGNOSTIC 1 EACH STRIP VI SCH ×4 (08:38→23:09)
[2020-11-02] MEDS: RAMIPRIL 5 MG CAPSULE PO SCH (08:39)
--- NOTE | 2020-11-02 13:30 | NUR ---
Patient going have plasma, obtained sign from Son/Solomon, Serob over the phone.
--- NOTE | 2020-11-02 16:00 | NUR ---
Patient finished Plasma transfusion, no s/s of adverse reaction observed, no skin rash, itchiness or fever observed. Will continue to monitor.
[2020-11-02] MEDS: *INSULIN REGULAR(HUMULIN R)HUM 100 UNIT/ML VIAL SQ PRN (17:21)
[2020-11-02] MEDS: ATORVASTATIN 40 MG TABLET PO SCH (17:25)
--- NOTE | 2020-11-02 18:00 | NUR ---
RN Closing note Patient in bed finished meal, does no appears pain or discomfort. Respiratory even an d unlabored with NRM at 15L and O2sat 90-92%, pt noticed taking off the mask frequently. Skin is warm to toud keep clean/dry, intact IV site. Kept locked bed with elevated HOB for ensure airway and aspiration precaution and lowest bed for safety. Call, light within reach will endorse layout designer.
[2020-11-02] MEDS: INSULIN GLARGINE, 100 UNIT/ML CARTRIDGE SQ SCH (22:00)
--- NOTE | 2020-11-02 22:45 | NUR ---
TELE/RN NOTES RECEIVED REPORT FROM CHARGE NURSE FOR MEME. PATIENT IN NO SIGNS OF DISTRESS.
[2020-11-02] MEDS: ENOXAPARIN SODIUM 40 MG/0.4 ML DISP.SYRIN SQ SCH (22:58)
[2020-11-03] VITALS (7 sets, daily range): BP systolic 115–135; BP diastolic 62–76
--- NOTE | 2020-11-03 06:45 | NUR ---
TELE/RN CLOSING NOTES PATIENT SLEEPING IN BED. PATIENT IS ALERT AND ORIENTED X 2. BREATHING IS EVEN AND UNLABORED. NO SIGNS OF SOB OR RESPIRATORY DISTRESS NOTED. PATIENT HAS IV ACCESS ON RIGHT FA #20G SL. PATIENT WAS RESTLESS THIS MORNING, REMOVING NON REBREATHER MASK AND TELE BOX, RISK AND BENEFITS HAVE BEEN EXAMPLE TO THE PATIENT. ALL NEED HAVE BEEN MET DURING SHIFT. SAFETY MEASURES ARE IN PLACE, BED IS LOCKED AND PLACED IN THE LOW POSITION, SIDE RAILS UP X 2. CALL LIGHT IS WITHIN REACH. WILL ENDORSE CARE TO DAY SHIFT.
[2020-11-03] MEDS: BLOOD SUGAR DIAGNOSTIC 1 EACH STRIP VI SCH ×4 (07:30→22:04)
--- NOTE | 2020-11-03 07:30 | NUR ---
EXPLOSIVES WORKER OPENING NOTES PATIENT IS AWAKE A/O X 3 WITH NO SIGNS OF DISTRESS ON A NON-REBREATHER AT 15 L/MIN SPO2 98%. IV R FA #20G SL. NO COMPLAIN OF PAIN AT THIS TIME. TELE MONITOR NSR. SAFETY MEASURES ARE APPLIED, BED IS IN LOW POSITION SIDE RAILS UP X 2. CALL LIGHT WITHIN REACH. WILL CONTINUE TO MONITOR.
[2020-11-03] MEDS: *INSULIN REGULAR(HUMULIN R)HUM 100 UNIT/ML VIAL SQ PRN ×2 (09:17→22:03)
[2020-11-03] MEDS: FUROSEMIDE 20 MG TABLET PO SCH (09:19)
[2020-11-03] MEDS: TAMSULOSIN 0.4 MG CAP.SR.24H PO SCH (09:19)
[2020-11-03] MEDS: ASPIRIN EC 81 MG TABLET.DR PO SCH (09:19)
[2020-11-03] MEDS: DILTIAZEM HCL CD 120 MG PO SCH ×2 (09:20→21:48)
[2020-11-03] MEDS: DEXAMETHASONE SOD PHOSPHATE 10 MG/ML VIAL IJ SCH (09:22)
[2020-11-03] MEDS: CARVEDILOL 12.5 MG TABLET PO SCH ×2 (09:22→17:51)
[2020-11-03] MEDS: RAMIPRIL 5 MG CAPSULE PO SCH (09:28)
[2020-11-03] MEDS: TERAZOSIN HCL 5 MG CAPSULE PO SCH (09:28)
[2020-11-03] MEDS: TICAGRELOR 90 MG TABLET PO SCH (09:28)
[2020-11-03] MEDS: ATORVASTATIN 40 MG TABLET PO SCH (17:51)
[2020-11-03] MEDS: INSULIN REGULAR, HUMAN 100 UNIT/ML 3 ML VIAL SQ PRN (18:16)
--- NOTE | 2020-11-03 18:23 | NUR ---
REGULATORY AFFAIRS INTERNSHIP CLOSING NOTES PATIENT IS AWAKE A/O X 3.NOT IN ANY ACUTE DISTRESS. ON A NON-REBREATHER AT 15 L/MIN SPO2 99%. IV R FA #20G SL. NO COMPLAIN OF PAIN AT THIS TIME. TELE MONITOR NSR. PATIENT KEPT CLEAN AND DRY. ALL NEEDS, CARE, TREATMENT,AND MEDICATIONS WERE ADMINISTERED ANTICIPATED PER ORDER. SAFETY MEASURES ARE APPLIED, BED IS IN LOW POSITION SIDE RAILS UP X 2. CALL LIGHT WITHIN REACH. WILL EDORSE TO NEXT SHIFT FOR MEME.
--- NOTE | 2020-11-03 20:00 | NUR ---
LOAN COLLECTOR NOTES PT IN BED AWAKE A/OX 3, NO DISTRESS OR DISCOMFORT NOTED NO S/S OF PAIN NOTED. ON NRB MASK 15L O2 SAT 96%. ON TELE MONITOR SR 71. SIDE RAILS UP X 2 AND CALL LIGHT WITHIN REACH. VSS. CONTINUE TO MONITOR HIM.
[2020-11-03] MEDS: ENOXAPARIN SODIUM 40 MG/0.4 ML DISP.SYRIN SQ SCH (21:48)
[2020-11-03] MEDS: INSULIN GLARGINE, 100 UNIT/ML CARTRIDGE SQ SCH (22:00)
[2020-11-04 01:00] VITALS: BP 128/65
[2020-11-04 05:00] VITALS: BP 122/68
[2020-11-04 06:21] LABS: BASOPHILS % (AUTO) 0.1 % (0.0-2.0); EOSINOPHILS % (AUTO) 0.3 % (0.0-6.0); HEMATOCRIT 35 % (39-51); HEMOGLOBIN 11.9 g/dL (13.5-17.5); LYMPHOCYTES # (AUTO) 0.5 /CMM (0.8-4.8); LYMPHOCYTES % (AUTO) 5.3 % (20.0-44.0); MEAN CORPUSCULAR HGB CONC 34 g/dl (31.0-36.0); MEAN CORPUSCULAR VOLUME 88 fL (80-96); MONOCYTES # (AUTO) 0.3 /CMM (0.1-1.30); MONOCYTES % (AUTO) 3.3 % (2.0-12.0); NEUTROPHILS # (AUTO) 8.5 /CMM (1.8-8.9); PLATELET COUNT (AUTO) 329 /CMM (150-450); RED BLOOD CELL COUNT(AUTO) 4.04 MIL/uL (4.5-6.0); WHITE BLOOD COUNT (AUTO) 9.4 K/uL (4.3-11.0)
--- NOTE | 2020-11-04 06:23 | NUR ---
BICYCLE ASSEMBLER NOTE PT IN BED ASLEEP, AROUSABLE. NO DISTRESS OR DISCOMFORT NOTED. DENIES PAIN. REMAIN ON NRB MASK 15L O2 SAT 96%, ALL NEEDS ATTENDED. ON TELE SR WITH PVC'S HR 60. SIDE RAILS UP X 2 AND CALL LIGHT WITHIN REACH. WILL ENDORSE TO DAY SHIFT NURSE FOR CONTINUE TO CARE.
[2020-11-04 06:42] LABS: CALCIUM, SERUM 8.6 mg/dL (8.5-10.1); CREATININE 0.8 mg/dL (0.6-1.3); MAGNESIUM 2.1 mg/dL (1.8-2.4); PHOSPHORUS 3.7 mg/dL (2.5-4.9)
--- NOTE | 2020-11-04 07:44 | NUR ---
WOUND CARE CONSULT: REVIEWED CHART,NURSING DOCUMENTATION AND PHOTO WHICH INDICATES SCROTAL REDNESS. RECOMMENDATIONS MDE FOR SKIN CARE AND PROTECTION. DISCUSSED WITH STAFF. MD IN AGREEMENT WITH PLAN OF CARE.
--- NOTE | 2020-11-04 08:08 | NUR ---
TELE/RN OPENING NOTES RECEIVED PATIENT ON BED AWAKE, ALERT AND ORIENTED X 2-3. PATIENT IN NO APPARENT RESPIRATORY DISTRESS NOTED. NO COMPLAINED OF PAIN AT THIS TIME. ON NON REBREATHER MASK AT 15L/MIN TOLERATING WELL. TELE MONITOR READING SINUS RHYTHM 71 BPM. WILL CONTINUE TO MONITOR.
[2020-11-04] MEDS: BLOOD SUGAR DIAGNOSTIC 1 EACH STRIP VI SCH ×4 (08:44→21:25)
[2020-11-04] MEDS: INSULIN REGULAR, HUMAN 100 UNIT/ML 3 ML VIAL SQ PRN ×3 (08:49→17:08)
[2020-11-04 09:00] VITALS: BP 117/69
[2020-11-04] MEDS: DILTIAZEM HCL CD 120 MG PO SCH ×2 (09:00→21:25)
[2020-11-04] MEDS: CARVEDILOL 12.5 MG TABLET PO SCH ×2 (09:00→17:00)
[2020-11-04] MEDS: ASPIRIN EC 81 MG TABLET.DR PO SCH (09:15)
[2020-11-04] MEDS: FUROSEMIDE 20 MG TABLET PO SCH (09:15)
[2020-11-04] MEDS: TAMSULOSIN 0.4 MG CAP.SR.24H PO SCH (09:17)
[2020-11-04] MEDS: DEXAMETHASONE SOD PHOSPHATE 10 MG/ML VIAL IJ SCH (09:17)
[2020-11-04] MEDS: RAMIPRIL 5 MG CAPSULE PO SCH (09:19)
[2020-11-04] MEDS: TICAGRELOR 90 MG TABLET PO SCH (09:20)
[2020-11-04] MEDS: TERAZOSIN HCL 5 MG CAPSULE PO SCH (09:24)
[2020-11-04] MEDS: CLOTRIMAZOLE 1% 15 GM TUBE TP SCH ×2 (12:17→17:16)
[2020-11-04 13:00] VITALS: BP 98/55
[2020-11-04 17:00] VITALS: BP 108/60
[2020-11-04] MEDS: ATORVASTATIN 40 MG TABLET PO SCH (17:19)
--- NOTE | 2020-11-04 18:40 | NUR ---
TELE/RN CLOSING NOTES PATIENT IS ON BED, ALERT AND ORIENTED X 2-3. PATIENT DENIES PAIN AT THIS TIME. PATIENT IN NO APPARENT RESPIRATORY DISTRESS NOTED. PATIENT IS NON REBREATHER MASK at 15L SATURATION 96%. TELE MONITOR READING SINUS RHYTHM 68 BPM. SEEN AND EXAMINED BY MD WITH ORDERS MADE AND CARRIED OUT. ALL DUE MEDICATIONS WAS GIVEN. SAFETY PRECAUTIONS WAS IN PLACED. BED IN LOWEST AND LOCKED POSITION. SIDERAILS UP X2. CALL LIGHT WITHIN REACH. WILL ENDORSED TO [employer] WEBSPHERE COMMERCE CONSULTANT FOR MEME.
--- NOTE | 2020-11-04 19:50 | NUR ---
CRYSTALIZER OPERATOR OPENING NOTES RECEIVED PATIENT RESTING IN BED COMFORTABLY; A/OX2-3, PATIENT BREATHING EVENLY AND UNLABORED; TOLERATING 15LPM VIA NON-REBREATHER MASK; NO SOB NOTED; NO APPARENT DISTRESS NOTED AT THIS TIME; TELE MONITOR SHOWS SINUS RHYTHM; R FA #20 INTACT AND PATENT S/L; ISOLATION PRECAUTIONS MAINTAINED; SAFETY PRECAUTIONS IMPLEMENTED; WILL CONT PLAN OF CARE
--- NOTE | 2020-11-04 20:50 | NUR ---
CORPORATE WEBMASTER NOTES SPOKE WITH SON, CARLOS, PER CARLOS HE WANTS TO SPEAK WITH MD REGARDING OXYGEN TITRATION; PER SON, HE HAS BEEN TRYING TO REACH A DOCTOR SINCE WEDNESDAY; PER AM SHIFT, DR. ELLIOTT HAD SPOKEN TO HIM YESTERDAY FOR UPDATES; WILL INFORM DAY SHIFT NURSE REGARDING THEIR CONCERNS AND CONT PLAN OF CARE
[2020-11-04 21:00] VITALS: BP 116/58
[2020-11-04] MEDS: INSULIN GLARGINE, 100 UNIT/ML CARTRIDGE SQ SCH (21:21)
[2020-11-04] MEDS: ENOXAPARIN SODIUM 40 MG/0.4 ML DISP.SYRIN SQ SCH (21:21)
[2020-11-04] MEDS: *INSULIN REGULAR(HUMULIN R)HUM 100 UNIT/ML VIAL SQ PRN (21:25)
[2020-11-05] VITALS (8 sets, daily range): BP systolic 100–129; BP diastolic 46–81
--- NOTE | 2020-11-05 | NUR ---
COTTON BALL MACHINE TENDER NOTES BP: 98/46, NO DISTRESS NOTED AT THIS TIME; MD BETTY HOGAN MADE AWARE; PATIENT DENIES PAIN; PER MD NO NEW ORDERS AT THIS TIME; TELE MONITOR READS SINUS RHYTHM 70S; WILL CONT PLAN OF CARE
--- NOTE | 2020-11-05 03:46 | NUR ---
WASHING MACHINE STRIPER NOTES PATIENT WANTED TO SEE WHAT HIS OXYGENATION STATUS IS WITH 15LPM VIA NON-REBREATHER MASK, PATIENT SATURATION 96%, PATIENT REPORTED HE IS ABLE TO TOLERATE ROOM AIR FOR SHORT PERIODS ON TIME; PATIENT WAS EDUCATED ON COMPLIANCE WITH TREATMENT PLAN; PATIENT VERBALIZED UNDERSTANDING; WILL CONT PLAN OF CARE AND INFORM DAY SHIFT
--- NOTE | 2020-11-05 04:00 | NUR ---
CUSTOMER CARE PROFESSIONAL NOTES PATIENT REFUSED BED TO BE CHANGED X3; PATIENT WAS EDUCATED AND ENCOURAGED TO CHANGE LINENS, PATIENT STILL REFUSING; WILL INFORM DAY SHIFT; CHARGE NURSE AWARE; WILL CONT PLAN OF CARE
--- NOTE | 2020-11-05 06:55 | NUR ---
POULTRY FARM SUPERVISOR CLOSING NOTES PATIENT RESTING IN BED COMFORTABLY; A/OX2-3, KISWAHILI SPEAKING; ABLE TO MAKE NEEDS KNOWN; ABLE TO FOLLOW COMMANDS; TOLERATING 15LPM VIA NON-REBREATHER WELL; NO SOB NOTED; SATTING 96-97%; NO ACUTE DISTRESS NOTED AT THIS TIME; PATIENT DENIES PAIN; TELE MONITOR READS SINUS RHYTHM 68BPM; ISOLATION PRECAUTIONS MAINTAINED; PATIENT CURRENTLY HAS LOW BLOOD PRESSURE, SLEEPING CAR CONDUCTOR MD, DR. BETTY HOGAN AWARE, NO NEW ORDERS AT THIS TIME; LAST BP: 106/46; ALL NEEDS RENDERED; SAFETY PRECAUTIONS IMPLEMENTED; WILL ENDORSE CONTINUITY OF CARE TO ONCOMING SHIFT
[2020-11-05 07:18] LABS: HEMATOCRIT 35 % (39-51); HEMOGLOBIN 11.8 g/dL (13.5-17.5); LYMPHOCYTES # (AUTO) 0.4 /CMM (0.8-4.8); LYMPHOCYTES % (AUTO) 4.5 % (20.0-44.0); MEAN CORPUSCULAR HGB CONC 34 g/dl (31.0-36.0); MEAN CORPUSCULAR VOLUME 89 fL (80-96); MONOCYTES # (AUTO) 0.3 /CMM (0.1-1.30); MONOCYTES % (AUTO) 3.6 % (2.0-12.0); NEUTROPHILS % (AUTO) 91.9 % (43.0-81.0); PLATELET COUNT (AUTO) 282 /CMM (150-450); RED BLOOD CELL COUNT(AUTO) 3.95 MIL/uL (4.5-6.0); WHITE BLOOD COUNT (AUTO) 9.8 K/uL (4.3-11.0)
[2020-11-05 07:53] LABS: CALCIUM, SERUM 8.6 mg/dL (8.5-10.1); CREATININE 0.9 mg/dL (0.6-1.3); MAGNESIUM 2.1 mg/dL (1.8-2.4); PHOSPHORUS 3.9 mg/dL (2.5-4.9); POTASSIUM 3.9 mmol/L (3.5-5.1)
[2020-11-05] MEDS: BLOOD SUGAR DIAGNOSTIC 1 EACH STRIP VI SCH ×4 (08:35→21:36)
--- NOTE | 2020-11-05 08:41 | NUR ---
FOOD CART ATTENDANT OPENING NOTES PATIENT AWAKE IN BED; A/OX2-3, NEPALI SPEAKING; ABLE TO MAKE NEEDS KNOWN. ABLE TO FOLLOW COMMANDS; TOLERATING 15LPM VIA NON-REBREATHER WELL; NO SOB NOTED; SATTING 96-97%; NO ACUTE DISTRESS NOTED AT THIS TIME. PATIENT DENIES DISCOMFORT OR PAIN AT THIS TIME. TELE MONITOR READS SINUS RHYTHM 70'S; IV ON RFA #20 PATENT AND INTACT. ISOLATION PRECAUTIONS MAINTAINED; ALL NEEDS RENDERED; SAFETY PRECAUTIONS IMPLEMENTED. BED LOCKED, AT LOWEST POSITION, SIDE RAILS UP X2, CALL LIGHT WITHIN REACH.
[2020-11-05] MEDS: DILTIAZEM HCL CD 120 MG PO SCH ×2 (09:00→20:38)
[2020-11-05] MEDS: CARVEDILOL 12.5 MG TABLET PO SCH ×2 (09:00→17:12)
[2020-11-05] MEDS: DEXAMETHASONE SOD PHOSPHATE 10 MG/ML VIAL IJ SCH (09:22)
[2020-11-05] MEDS: CLOTRIMAZOLE 1% 15 GM TUBE TP SCH ×2 (09:25→17:13)
[2020-11-05] MEDS: ASPIRIN EC 81 MG TABLET.DR PO SCH (09:26)
[2020-11-05] MEDS: FUROSEMIDE 20 MG TABLET PO SCH (09:26)
[2020-11-05] MEDS: RAMIPRIL 5 MG CAPSULE PO SCH (09:26)
[2020-11-05] MEDS: TAMSULOSIN 0.4 MG CAP.SR.24H PO SCH (09:27)
[2020-11-05] MEDS: TICAGRELOR 90 MG TABLET PO SCH (09:29)
[2020-11-05] MEDS: INSULIN REGULAR, HUMAN 100 UNIT/ML 3 ML VIAL SQ PRN ×5 (09:32→21:56)
[2020-11-05] MEDS: TERAZOSIN HCL 5 MG CAPSULE PO SCH (11:12)
[2020-11-05] MEDS: ATORVASTATIN 40 MG TABLET PO SCH (17:12)
--- NOTE | 2020-11-05 18:25 | NUR ---
MIRROR FABRICATION SUPERVISOR CLOSING NOTES PATIENT AWAKE IN BED; A/OX2-3, YAKUT SPEAKING; ABLE TO MAKE NEEDS KNOWN. ABLE TO FOLLOW COMMANDS. TOLERATING 15LPM VIA NON-REBREATHER WELL; NO SOB NOTED; SATTING 96%; NO ACUTE DISTRESS NOTED AT THIS TIME. PATIENT DENIES DISCOMFORT OR PAIN AT THIS TIME. TELE MONITOR READS SINUS RHYTHM AT 80'S. IV ON RFA #20 PATENT AND INTACT. REDNESS ON SCROTUM NOTED, TREATMENT DONE ORDERED. ISOLATION PRECAUTIONS MAINTAINED; ALL NEEDS MET; SAFETY PRECAUTIONS IMPLEMENTED. BED LOCKED, AT LOWEST POSITION, SIDE RAILS UP X2, CALL LIGHT WITHIN REACH. WILL ENDORSE PLAN OF CARE TO BOX ORDER PERSON NURSE.
--- NOTE | 2020-11-05 19:00 | NUR ---
RN OPENING NOTE RECEIVED PATIENT IN BED RESTING ALERT ORIENTED X3 VERBALLY RESPONSIVE INDONESIAN SPEAKER ONLY ON MONITORING FOR COVID POSITIVE AND ON CONTACT/DROPLET PRECAUTION,ON 15L OXYGEN NN REBREATHER MASK,O2:96% IV SITE IS ON RIGHT FOREARM INTACT PATENT CONTINENT TO BOWEL/BLADDER AMBULATORY WITH ASSIST,BED IN LOW POSITON AND LOCKED,CALL LIGHT WITHIN REACH,SAFETY MEASURE IMPLEMENT CONTINUE TO MONITOR.
[2020-11-05] MEDS: ENOXAPARIN SODIUM 40 MG/0.4 ML DISP.SYRIN SQ SCH (20:39)
[2020-11-05] MEDS: INSULIN GLARGINE, 100 UNIT/ML CARTRIDGE SQ SCH (21:47)
[2020-11-06] VITALS: BP 118/60
[2020-11-06 04:00] VITALS: BP 111/65
--- NOTE | 2020-11-06 07:02 | NUR ---
RN CLOSING NOTES PATIENT IN BED, CONTINUE ON NON REBREATHER 15L SATING AT 97 %. NO RESP DISTRESS NOTED. DENIES ANY SOB/ PAIN. TELE MONITOR SHOWS SR HR 67. IV SITE ON RIGHT FA PATENT AND INTACT. NO SIGNS OF INFECTION. NO S/SX OF HYPO/HYPERGLYCEMIA. LAST FSBS IS 116. ALL NEEDS ATTENDED. ISOLATION PRECAUTION FOR COVID OBSERVED. ALL SAFETY MEASURES IMPLEMENTED PER PROTOCOL. BED LOCKED IN LOWEST POSITION. CALL LIGHT WITHIN REACH. WILL ENDORSE TO NEXT SHIFT FOR MEME.
[2020-11-06] MEDS: BLOOD SUGAR DIAGNOSTIC 1 EACH STRIP VI SCH ×4 (07:30→21:44)
--- NOTE | 2020-11-06 07:30 | NUR ---
RN OPENING NOTES PT AWAKE IN BED. A/O X2-3. FILIPINO SPEAKING, UNDERSTANDS EGYPTIAN. O2 @15LPM VIA NON-REBREATHER MASK, SATURATION @96-99%. NO SOB. NO ACUTE DISTRESS NOTED AT THIS TIME. PATIENT NO PAIN AT THIS TIME. TELE MONITOR READS SINUS RHYTHM 70'S. IV ON RFA #20 PATENT AND INTACT. ISOLATION PRECAUTIONS MAINTAINED. SAFETY PRECAUTIONS IMPLEMENTED. CALL LIGHT WITHIN REACH. BED LOCKED AND AT LOWEST POSITION WITH SIDE RAILS UP X2. WILL CONTINUE TO MONITOR
[2020-11-06 08:00] VITALS: BP 127/85
[2020-11-06] MEDS: FUROSEMIDE 20 MG TABLET PO SCH (09:04)
[2020-11-06] MEDS: ASPIRIN EC 81 MG TABLET.DR PO SCH (09:04)
[2020-11-06] MEDS: CARVEDILOL 12.5 MG TABLET PO SCH ×2 (09:05→17:19)
[2020-11-06] MEDS: DEXAMETHASONE SOD PHOSPHATE 10 MG/ML VIAL IJ SCH (09:05)
[2020-11-06] MEDS: DILTIAZEM HCL CD 120 MG PO SCH ×2 (09:05→21:00)
[2020-11-06] MEDS: TICAGRELOR 90 MG TABLET PO SCH (09:06)
[2020-11-06] MEDS: TERAZOSIN HCL 5 MG CAPSULE PO SCH (09:06)
[2020-11-06] MEDS: TAMSULOSIN 0.4 MG CAP.SR.24H PO SCH (09:06)
[2020-11-06] MEDS: RAMIPRIL 5 MG CAPSULE PO SCH (09:06)
[2020-11-06] MEDS: CLOTRIMAZOLE 1% 15 GM TUBE TP SCH ×2 (09:07→17:19)
[2020-11-06] MEDS: *INSULIN REGULAR(HUMULIN R)HUM 100 UNIT/ML VIAL SQ PRN ×3 (09:54→21:42)
[2020-11-06 12:00] VITALS: BP 103/53
[2020-11-06] MEDS: GLUCERNA SHAKE 237 ML CAN PO SCH ×2 (12:00→17:19)
[2020-11-06 16:00] VITALS: BP 104/62
[2020-11-06] MEDS: ATORVASTATIN 40 MG TABLET PO SCH (17:19)
--- NOTE | 2020-11-06 19:55 | NUR ---
RN OPENING NOTE RECEIVED PATIENT IN BED. ALERT, VERBALLY RESPONSIVE. ON O2 VIA NONREBREATHER MASK AT 15L, TOLERATING WELL. DENIES ANY SOB. NO RESP DISTRESS NOTED. TELE READING SINUS RHYTHM. DENIES ANY PAIN. IV ON RFA PATENT AND INTACT, FLUSHED ASEPTICALLY. NO SIGNS OF INFECTION. STRICT ISOLATION PRECAUTION FOR COVID OBSERVED. ALL SAFETY MEASURES IMPLEMENTED PER PROTOCOL. BED LOCKED IN LOWEST POSITION. CALL LIGHT WITHIN REACH. SIDE RAILS UP X 2. WILL CONTINUE TO MONITOR.
--- NOTE | 2020-11-06 19:55 | NUR ---
RN CLOSING NOTES PT AWAKE IN BED. A/O X2-3. PANAMANIAN SPEAKING, UNDERSTANDS TAJIK. O2 @15LPM VIA NON-REBREATHER MASK, SATURATION @96-99%. NO SOB. NO ACUTE DISTRESS NOTED AT THIS TIME. PATIENT NO PAIN AT THIS TIME. TELE MONITOR READS SINUS RHYTHM 70'S. IV ON RFA #20 PATENT AND INTACT. ISOLATION PRECAUTIONS MAINTAINED. SAFETY PRECAUTIONS IMPLEMENTED. CALL LIGHT WITHIN REACH. BED LOCKED AND AT LOWEST POSITION WITH SIDE RAILS UP X2. WILL ENDORSE TO NIGHT NURSE FOR MEME
[2020-11-06 20:00] VITALS: BP 106/50
[2020-11-06] MEDS: ENOXAPARIN SODIUM 40 MG/0.4 ML DISP.SYRIN SQ SCH (21:13)
[2020-11-06] MEDS: INSULIN GLARGINE, 100 UNIT/ML CARTRIDGE SQ SCH (21:45)
[2020-11-07] VITALS: BP 110/58
[2020-11-07 04:00] VITALS: BP 121/62
--- NOTE | 2020-11-07 06:49 | NUR ---
RN NOTES PT REMAINS IN BED, CONTINUE ON O2 NONREBREATHER 15 L SATING AT 98 %. NO ACUTE DISTRESS NOTED. DENIES SOB. TELE MONITOR SHOW SINUS RHYTHM HR 66. NO SIGNS OF PAIN OR DISCOMFORT. ALL NEEDS ATTENDED. IV ON RFA PATENT AND INTACT. ISOLATION PRECAUTION MAINTAINED. ALL SAFETY MEASURES IMPLEMENTED, BED LOCKED IN LOWEST POSITION. CALL LIGHT WITHIN REACH. WILL ENDORSE TO NEXT SHIFT NURSE FOR MEME.
[2020-11-07] MEDS: BLOOD SUGAR DIAGNOSTIC 1 EACH STRIP VI SCH ×3 (07:28→17:28)
--- NOTE | 2020-11-07 07:36 | NUR ---
HEAD CUSTODIAN NOTES PATIENT RECEIVED IN BED, ALERT AND ORIENTED X 3, MACEDONIAN SPEAKING. ON NON-REBREATHER MASK WITH NO RESPIRATORY DISTRESS AT THIS TIME. SKIN WARM AND DRY TO TOUCH. IV ACCESS INTACT AND PATENT. ON PHYSICAL SCIENTIST, SINUS RHYTHM 66. PATIENT PRESENTING WITH NO PAIN OR DISCOMFORT AT THIS TIME. SAFETY PRECAUTIONS IMPLEMENTED WITH BED LOCKED, BILATERAL SIDE RAILS UP, BED ALARM ON, BED IN THE LOWEST POSITION AND CALL LIGHT WITHIN EASY REACH. WILL CONTINUE TO MONITOR.
[2020-11-07 08:00] VITALS: BP 101/61
[2020-11-07] MEDS: DEXAMETHASONE SOD PHOSPHATE 10 MG/ML VIAL IJ SCH (08:44)
[2020-11-07] MEDS: FUROSEMIDE 20 MG TABLET PO SCH (08:45)
[2020-11-07] MEDS: TAMSULOSIN 0.4 MG CAP.SR.24H PO SCH (08:45)
[2020-11-07] MEDS: ASPIRIN EC 81 MG TABLET.DR PO SCH (08:45)
[2020-11-07] MEDS: GLUCERNA SHAKE 237 ML CAN PO SCH ×2 (08:49→17:18)
[2020-11-07] MEDS: DILTIAZEM HCL CD 120 MG PO SCH ×2 (08:52→21:00)
[2020-11-07] MEDS: TICAGRELOR 90 MG TABLET PO SCH (08:52)
[2020-11-07] MEDS: CARVEDILOL 12.5 MG TABLET PO SCH ×2 (08:53→17:19)
[2020-11-07] MEDS: TERAZOSIN HCL 5 MG CAPSULE PO SCH (08:53)
[2020-11-07] MEDS: RAMIPRIL 5 MG CAPSULE PO SCH (08:54)
[2020-11-07] MEDS: CLOTRIMAZOLE 1% 15 GM TUBE TP SCH ×2 (08:54→17:19)
[2020-11-07 12:00] VITALS: BP 102/53
[2020-11-07] MEDS: INSULIN REGULAR, HUMAN 100 UNIT/ML 3 ML VIAL SQ PRN ×3 (12:28→21:42)
[2020-11-07 16:00] VITALS: BP 121/60
[2020-11-07] MEDS: ATORVASTATIN 40 MG TABLET PO SCH (17:28)
--- NOTE | 2020-11-07 17:50 | NUR ---
RADIOLOGY PHYSICIAN NOTES PATIENT'S BLOOD SUGAR 456 RECHECKED PATIENT'S BLOOD SUGAR RESULTS; 448. ADMINISTERED SLIDING SCALE PROTOCOL OF 15 UNITS, AND INFORMED HOSPITALIST, CJ TAMAYO DNP, ORDERED AGGRESSIVE SLIDING SCALE Q 4 HOURS. AT THIS TIME WILL CONTINUE TO MONITOR PATIENT.
[2020-11-07] MEDS ORDERED: DEXTROSE 50%-WATER 50 ML DISP.SYRIN IV PRN (18:30)
--- NOTE | 2020-11-07 18:50 | NUR ---
MUSHROOM PICKER NOTES PATIENT IN BED, ALERT AND ORIENTED X 3, FAROESE SPEAKING. ON SIMPLE FACE MASK, 8 LITERS OF OXYGEN WITH NO RESPIRATORY DISTRESS AT THIS TIME AND WITH EVEN NON-LABORED BREATHING. SKIN KEPT CLEAN, WARM AND DRY TO TOUCH. IV ACCESS INTACT AND PATENT. ON OPTICAL ELEMENT COATER, SINUS RHYTHM 76. PATIENT PRESENTING WITH NO PAIN OR DISCOMFORT AT THIS TIME. SAFETY PRECAUTIONS IMPLEMENTED WITH BED LOCKED, BILATERAL SIDE RAILS UP, BED ALARM ON, BED IN THE LOWEST POSITION AND CALL LIGHT WITHIN EASY REACH. WILL ENDORSE PLAN OF CARE TO UPCOMING RN.
--- NOTE | 2020-11-07 19:30 | NUR ---
HELIUM ARC WELDER OPENING NOTES RECEIVED PATIENT IN BED, ALERT AND ORIENTED X 3. VERBALLY RESPONSIVE AND ABLE TO FOLLOW DIRECTIONS. BREATHING REGULAR AND UNLABORED ON FACE MASK AT 8L/MIN, LATEST SPO2 98%. RIGHT FOREARM G20 IV LINE INTACT AND PATENT, FLUSHING WELL WITH NO BLEEDING OR S/S OF INFILTRATION NOTED. ON CARDIAC MONITORING WITH NSR AT 68bpm. DENIES PAIN/DISCOMFORT AT THIS TIME. BED LOW AND LOCKED ON SEMI FOWLERS POSITION. CALL LIGHT IN REACH. ON ISOLATION FOR COVID19, PROPER HAND WASHING AND ISOLATION PRECAUTIONS OBSERVED. WILL CONTINUE TO MONITOR.
[2020-11-07 20:00] VITALS: BP 108/60
[2020-11-07] MEDS: INSULIN GLARGINE, 100 UNIT/ML CARTRIDGE SQ SCH (21:41)
[2020-11-07] MEDS: BLOOD SUGAR DIAGNOSTIC 1 EACH STRIP IN SCH (21:41)
[2020-11-07] MEDS: ENOXAPARIN SODIUM 40 MG/0.4 ML DISP.SYRIN SQ SCH (21:42)
--- NOTE | 2020-11-07 21:45 | NUR ---
TARGET AIRCRAFT CONTROLLER NOTES BS 433mg/dl, LANTUS 80u AND REGULAR INSULIN 20u GIVEN SQ. SITE ROTATED. SOLAR PROJECT COORDINATION SPECIALIST CRIS NOTIFIED WITH ORDERS TO RECHECK BS AFTER 15MINS., NOTED AND CARRIED OUT.
--- NOTE | 2020-11-07 22:45 | NUR ---
BURNING SUPERVISOR NOTES RECHECK BS AFTER 15MINS WITH 439mg/dl RESULT, HOOP PUNCH AND COILER OPERATOR HELPER KEH MADE AWARE WITH ORDERS TO GIVE 10u EXTRA REGULAR INSULIN SQ ONE TIME ONLY, NOTED AND CARRIED OUT. SNACKS PROVIDED ON BEDSIDE. WILL CONTINUE TO MONITOR.
[2020-11-07] MEDS ORDERED: INSULIN REGULAR, HUMAN 100 UNIT/ML 10 ML VIAL SQ ONE (23:00)
[2020-11-08] VITALS: BP 102/57
[2020-11-08] MEDS: BLOOD SUGAR DIAGNOSTIC 1 EACH STRIP IN SCH ×6 (01:02→21:23)
[2020-11-08] MEDS: INSULIN REGULAR, HUMAN 100 UNIT/ML 3 ML VIAL SQ PRN ×5 (01:03→21:27)
[2020-11-08 04:00] VITALS: BP 100/64
--- NOTE | 2020-11-08 05:10 | NUR ---
WIDE AREA NETWORK ENGINEER NOTES BS 36mg/dl NOTED, DEXTROSE 50 GIVEN VIA IVP. PATIENT REMAINED ALERT AND ORIENTED X 3. WILL CLOSELY MONITOR.
--- NOTE | 2020-11-08 05:40 | NUR ---
SPORTS BETTING MANAGER NOTES RECHECK BS AFTER 30MINS, 153mg/dl.
--- NOTE | 2020-11-08 06:45 | NUR ---
EPIC ANESTHESIA ANALYST CLOSING NOTES PATIENT IN BED, ALERT AND ORIENTED X 3. AFEBRILE WITH NO S/S OF DISTRESS OBSERVED. RIGHT FOREARM G20 IV LINE PATENT AND FLUSHING WELL. MAINTAINED ON CARDIAC MONITORING WITH NSR. NO COMPLAINTS OF PAIN/DISCOMFORT REPORTED AT THIS TIME. BED LOW AND LOCKED ON SEMI FOWLERS POSITION. CALL LIGHT IN REACH. WILL ENDORSE TO MORNING SHIFT FOR MEME.
[2020-11-08 07:27] LABS: BASOPHILS % (AUTO) 0.1 % (0.0-2.0); EOSINOPHILS % (AUTO) 0.2 % (0.0-6.0); HEMATOCRIT 37 % (39-51); HEMOGLOBIN 12.3 g/dL (13.5-17.5); LYMPHOCYTES # (AUTO) 0.8 /CMM (0.8-4.8); LYMPHOCYTES % (AUTO) 5.7 % (20.0-44.0); MEAN CORPUSCULAR HGB CONC 34 g/dl (31.0-36.0); MEAN CORPUSCULAR VOLUME 87 fL (80-96); MONOCYTES # (AUTO) 0.4 /CMM (0.1-1.30); MONOCYTES % (AUTO) 2.9 % (2.0-12.0); NEUTROPHILS # (AUTO) 13.3 /CMM (1.8-8.9); NEUTROPHILS % (AUTO) 91.1 % (43.0-81.0); PLATELET COUNT (AUTO) 241 /CMM (150-450); RED BLOOD CELL COUNT(AUTO) 4.22 MIL/uL (4.5-6.0); WHITE BLOOD COUNT (AUTO) 14.5 K/uL (4.3-11.0)
[2020-11-08 07:51] LABS: CALCIUM, SERUM 9.6 mg/dL (8.5-10.1); CREATININE 0.9 mg/dL (0.6-1.3); MAGNESIUM 2.2 mg/dL (1.8-2.4); PHOSPHORUS 3.6 mg/dL (2.5-4.9); POTASSIUM 3.4 mmol/L (3.5-5.1)
[2020-11-08 08:00] VITALS: BP 111/67
--- NOTE | 2020-11-08 08:00 | NUR ---
RN Opening note Received patient in bed, AO x 4 Mauritian speaking, able to responds all stimuli, Pt does no appears pain or distress. Skin is warm to touch keep clean/dry intact IV site, respiratory even and unlabored with oxygen at 4LPM O2sat 97-99%. Kept locked bed with elevated HOB for aspiration precaution and ensure airway and lowest bed foe safety. Call light within reach, will continue to monitor.
[2020-11-08] MEDS: GLUCERNA SHAKE 237 ML CAN PO SCH ×2 (08:34→16:37)
[2020-11-08] MEDS: DEXAMETHASONE SOD PHOSPHATE 10 MG/ML VIAL IJ SCH (08:36)
[2020-11-08] MEDS: ASPIRIN EC 81 MG TABLET.DR PO SCH (08:36)
[2020-11-08] MEDS: FUROSEMIDE 20 MG TABLET PO SCH (08:36)
[2020-11-08] MEDS: TAMSULOSIN 0.4 MG CAP.SR.24H PO SCH (08:36)
[2020-11-08] MEDS: CARVEDILOL 12.5 MG TABLET PO SCH ×2 (08:44→16:37)
[2020-11-08] MEDS: DILTIAZEM HCL CD 120 MG PO SCH ×2 (08:44→21:00)
[2020-11-08] MEDS: TERAZOSIN HCL 5 MG CAPSULE PO SCH (08:45)
[2020-11-08] MEDS: RAMIPRIL 5 MG CAPSULE PO SCH (08:46)
[2020-11-08] MEDS: CLOTRIMAZOLE 1% 15 GM TUBE TP SCH ×2 (08:52→16:37)
[2020-11-08] MEDS: TICAGRELOR 90 MG TABLET PO SCH (08:52)
--- NOTE | 2020-11-08 09:37 | NUR ---
Patient noticed BS 47 mg/dL, after BKF BS was 143mg/dL. Will continue to monitor.
[2020-11-08] MEDS ORDERED: POTASSIUM CHLORIDE 20 MEQ TAB.PRT.SR PO ONE (10:15)
[2020-11-08 13:23] VITALS: BP 118/59
--- NOTE | 2020-11-08 15:50 | NUR ---
Patient's +PCP/Dr. Shah wants to talk Dr. Burden regarding patient discharge and informed to Dr. Burden who will contact Dr. Shah.
[2020-11-08 16:00] VITALS: BP 121/62
--- NOTE | 2020-11-08 16:49 | NUR ---
Patient noticed BS was 412mg/dL, MD aware and received order CBC, Mg, Phos Stat. Given 20 units insulin as pre sliding scale/aggressive. Will continue to monitor.
[2020-11-08] MEDS: ATORVASTATIN 40 MG TABLET PO SCH (17:11)
[2020-11-08 17:35] LABS: CALCIUM, SERUM 8.7 mg/dL (8.5-10.1); CREATININE 1.1 mg/dL (0.6-1.3); MAGNESIUM 1.7 mg/dL (1.8-2.4); PHOSPHORUS 3.9 mg/dL (2.5-4.9); POTASSIUM 4.9 mmol/L (3.5-5.1)
--- NOTE | 2020-11-08 17:59 | NUR ---
RN Closing note Patient in bed and resting, does no appears pain or discomfort. Respiratory even and unlabored with oxygen at 4LPM and O2sat 92%. Skin is warm to touch keep clean/dry, intact IV site. Kept locked bed with elevated HOB for ensure airway and aspiration precaution and lowest bed for safety. Call, light within reach will endorse cage shift manager.
--- NOTE | 2020-11-08 19:45 | NUR ---
CHUCKER NOTES RECEIVED REPORT FROM FARIDA GORDON; WILL CONT PLAN OF CARE
[2020-11-08 20:00] VITALS: BP 112/52
[2020-11-08] MEDS: ENOXAPARIN SODIUM 40 MG/0.4 ML DISP.SYRIN SQ SCH (21:27)
[2020-11-08] MEDS: INSULIN GLARGINE, 100 UNIT/ML CARTRIDGE SQ SCH (21:28)
--- NOTE | 2020-11-08 22:00 | NUR ---
GRAPHIC DESIGN SPECIALIST NOTES PATIENT'S LANTUS NOT AVAILABLE ON UNIT; CHARGE NURSE AWARE; UNABLE TO ADMINISTER MEDICATION PER MD ORDER; WILL INFORM DAY SHIFT
[2020-11-09] VITALS: BP 109/60
[2020-11-09] MEDS: BLOOD SUGAR DIAGNOSTIC 1 EACH STRIP IN SCH ×6 (00:11→21:31)
[2020-11-09] MEDS: INSULIN REGULAR, HUMAN 100 UNIT/ML 3 ML VIAL SQ PRN ×4 (00:34→21:55)
[2020-11-09 04:00] VITALS: BP 101/54
--- NOTE | 2020-11-09 06:53 | NUR ---
TUBE DRAWER CLOSING NOTES PATIENT RESTING IN BED COMFORTABLY; A/OX4; BREATHING EVENLY AND UNLABORED; TOLERATING 4LPM VIA NASAL CANULA WELL, PATIENT STATES HE FEELS MORE COMFORTABLE WITH SIMPLE MASK DURING SLEEP; NO DISTRESS NOTED; PATIENT DENIES PAIN; TELE MONITOR READS SINUS RHYTHM 60S-70S; ISOLATION PRECAUTIONS MAINTAINED; R FA #20 S/L INTACT AND PATENT; ALL NEEDS RENDERED; SAFETY PRECAUTIONS IMPLEMENTED; WILL ENDORSE MEME TO ONCOMING SHIFT
[2020-11-09 07:17] LABS: BASOPHILS % (AUTO) 0.1 % (0.0-2.0); EOSINOPHILS % (AUTO) 0.3 % (0.0-6.0); HEMATOCRIT 36 % (39-51); HEMOGLOBIN 12.4 g/dL (13.5-17.5); LYMPHOCYTES # (AUTO) 1.2 /CMM (0.8-4.8); MEAN CORPUSCULAR HGB CONC 34 g/dl (31.0-36.0); MEAN CORPUSCULAR VOLUME 86 fL (80-96); MONOCYTES # (AUTO) 0.6 /CMM (0.1-1.30); MONOCYTES % (AUTO) 4.3 % (2.0-12.0); NEUTROPHILS # (AUTO) 11.1 /CMM (1.8-8.9); NEUTROPHILS % (AUTO) 86.3 % (43.0-81.0); PLATELET COUNT (AUTO) 237 /CMM (150-450); RED BLOOD CELL COUNT(AUTO) 4.18 MIL/uL (4.5-6.0); WHITE BLOOD COUNT (AUTO) 12.9 K/uL (4.3-11.0)
[2020-11-09 07:52] LABS: CREATININE 0.9 mg/dL (0.6-1.3); MAGNESIUM 1.9 mg/dL (1.8-2.4); PHOSPHORUS 3.8 mg/dL (2.5-4.9); POTASSIUM 3.7 mmol/L (3.5-5.1)
--- NOTE | 2020-11-09 07:54 | NUR ---
IT INFRASTRUCTURE ARCHITECT OPENING NOTES RECEIVED PATIENT IN BED, ASLEEP. PATIENT CURRENTLY ON O2 THERAPY AT 10 LPM VIA SIMPLE MASK; BREATHING EVEN AND UNLABORED; NO SOB PRESENT. TELE MONITOR WITH A CURRENT READING OF SINUS RHYTHM 74 BPM. RFA G # 20 IV ACCESS PRESENT AND INTACT. NO SIGNS OF PAIN AT THIS TIME. SAFETY PRECAUTIONS IN PLACE; BED IN LOW POSITION AND LOCKED, RAILS UP X2, CALL LIGHT WITHIN REACH. WILL CONTINUE TO MONITOR PATIENT.
[2020-11-09 08:00] VITALS: BP 113/63
--- NOTE | 2020-11-09 08:00 | NUR ---
TELE/RN OPENING NOTE Received report from FAIRDA Martinez. Received patient resting in bed, A&O x 3-4. Denies any pain/discomfort at this time. Breathing even and non-labored on 8L oxygen via NC. No respiratory or cardiac distress noted. On tele monitor, reading SR 80. RFA #20 g IV access noted, patent and intact, and flushing well. Bed locked to its lowest position, side rails x 2 up, call light in hand. Will continue with current medical management. Addendum: 11/09/20 at 1126 by LAXMI VASQUEZ RN CORRECTION: OXYGEN VIA FACE MASK
--- NOTE | 2020-11-09 08:08 | NUR ---
INSURANCE ACCOUNT SPECIALIST NOTES PATIENT CARE TRANSFERRED TO FARIDA JESUS. REPORT GIVEN.
[2020-11-09] MEDS: GLUCERNA SHAKE 237 ML CAN PO SCH ×2 (08:44→17:24)
[2020-11-09] MEDS: RAMIPRIL 5 MG CAPSULE PO SCH ×2 (08:45→08:53)
[2020-11-09] MEDS: ASPIRIN EC 81 MG TABLET.DR PO SCH (08:45)
[2020-11-09] MEDS: TERAZOSIN HCL 5 MG CAPSULE PO SCH (08:45)
[2020-11-09] MEDS: TICAGRELOR 90 MG TABLET PO SCH (08:45)
[2020-11-09] MEDS: FUROSEMIDE 20 MG TABLET PO SCH (08:46)
[2020-11-09] MEDS: DILTIAZEM HCL CD 120 MG PO SCH ×3 (08:46→20:46)
[2020-11-09] MEDS: TAMSULOSIN 0.4 MG CAP.SR.24H PO SCH (08:46)
[2020-11-09] MEDS: CARVEDILOL 12.5 MG TABLET PO SCH ×2 (08:46→17:00)
[2020-11-09] MEDS: CLOTRIMAZOLE 1% 15 GM TUBE TP SCH ×2 (08:54→17:25)
[2020-11-09 12:00] VITALS: BP 98/64
--- NOTE | 2020-11-09 14:00 | NUR ---
TELE/RN NOTE Titrated O2 down to 4L via face mask, patient tolerating level well, appears comfortable and saturating at 90-95%.
[2020-11-09 16:00] VITALS: BP 95/57
[2020-11-09] MEDS: ATORVASTATIN 40 MG TABLET PO SCH (17:24)
--- NOTE | 2020-11-09 19:03 | NUR ---
TELE/RN CLOSING NOTE Patient resting in bed, A&O x 3-4, all needs met and attended to. Denies any pain/discomfort throughout shift. Breathing even and non-labored on 4L oxygen via face mask. No respiratory or cardiac distress noted. On tele monitor, reading SR 79. RFA #20 g IV access noted, patent and intact, and flushing well. Fall precautions maintained. Will endorse to [facility] shift lead nurse.
--- NOTE | 2020-11-09 19:30 | NUR ---
vocational education teacher opening notes Received Pt from morning nurse. Pt is resting in bed comfortably. Pt is alert and oriented X3. Pt speaks Turkish and able to make needs known. Breathing is even and non labored on 4 L oxygen via mask. No SOB. No S/S of distress noted. IV sites at RFA# 20 is clean, intact, flushes well and SL. Tele monitor showed SR HR at 75 bpm. Safety precautions is maintained. Bed at low position, brakes locked, side rails upX2 and call light is within reach. Will continue to monitor.
[2020-11-09 20:00] VITALS: BP 100/56
[2020-11-09] MEDS: ENOXAPARIN SODIUM 40 MG/0.4 ML DISP.SYRIN SQ SCH (21:14)
--- NOTE | 2020-11-09 22:50 | NUR ---
gold letterer notes Pt insulin glargine not at the Pt's bin. Called and spoke to Nursing supervisor contact lens regarding Pt's insulin glargine.
[2020-11-09] MEDS ORDERED: INSULIN GLARGINE, 100 UNIT/ML CARTRIDGE SQ ONE (23:15)
--- NOTE | 2020-11-09 23:20 | NUR ---
machine pack assembler notes Received glargine insulin from nursing shearing supervisor.
[2020-11-09] MEDS: INSULIN GLARGINE, 100 UNIT/ML CARTRIDGE SQ SCH (23:24)
[2020-11-10] VITALS: BP 98/51
[2020-11-10] MEDS: BLOOD SUGAR DIAGNOSTIC 1 EACH STRIP IN SCH ×6 (00:26→22:00)
[2020-11-10] MEDS: INSULIN REGULAR, HUMAN 100 UNIT/ML 3 ML VIAL SQ PRN ×5 (00:28→22:28)
[2020-11-10 04:00] VITALS: BP 118/67
[2020-11-10 06:16] LABS: BASOPHILS % (AUTO) 0.4 % (0.0-2.0); EOSINOPHILS % (AUTO) 0.4 % (0.0-6.0); HEMATOCRIT 36 % (39-51); HEMOGLOBIN 12.1 g/dL (13.5-17.5); LYMPHOCYTES % (AUTO) 8.6 % (20.0-44.0); MEAN CORPUSCULAR HGB CONC 34 g/dl (31.0-36.0); MEAN CORPUSCULAR VOLUME 86 fL (80-96); MONOCYTES # (AUTO) 0.5 /CMM (0.1-1.30); MONOCYTES % (AUTO) 4.2 % (2.0-12.0); NEUTROPHILS # (AUTO) 9.8 /CMM (1.8-8.9); NEUTROPHILS % (AUTO) 86.4 % (43.0-81.0); PLATELET COUNT (AUTO) 210 /CMM (150-450); RED BLOOD CELL COUNT(AUTO) 4.14 MIL/uL (4.5-6.0); WHITE BLOOD COUNT (AUTO) 11.3 K/uL (4.3-11.0)
[2020-11-10 06:30] LABS: CALCIUM, SERUM 9.1 mg/dL (8.5-10.1); CREATININE 0.8 mg/dL (0.6-1.3); PHOSPHORUS 3.3 mg/dL (2.5-4.9); POTASSIUM 3.9 mmol/L (3.5-5.1)
--- NOTE | 2020-11-10 06:40 | NUR ---
dispatcher radioactive waste disposal closing notes Pt is resting in bed comfortably. Pt is alert and oriented X3. Pt speaks Ukrainian and able to make needs known. Breathing is even and non labored on 4 L oxygen via mask. No SOB. No S/S of distress noted. VS is stable. Afebrile. IV sites at RFA# 20 is clean, intact, flushes well and SL. Tele monitor showed SR HR at 78 bpm. Kept clean, dry and comfortable. All needs met and attended. Safety precautions is maintained. Bed at low position, brakes locked, side rails upX2 and call light is within reach. Will endorse to morning nurse for MEME.
--- NOTE | 2020-11-10 07:30 | NUR ---
marine diver opening notes Pt is in bed sleeping, able to be awakened. Alert and oriented X3, able to make needs known. Malian-speaking, understands some Rwandan. Breathing is even and non labored on 4L O2 via simple mask. IV line on RFA #20 intact and patent. On Tele monitoring, reading of SR, HR at 70's. Safety precautions in place: bed at lowest position, brakes locked, side rails up X2, call light is within reach. Will continue to monitor.
[2020-11-10 08:00] VITALS: BP 123/72
[2020-11-10] MEDS: GLUCERNA SHAKE 237 ML CAN PO SCH ×2 (08:06→16:07)
[2020-11-10] MEDS: RAMIPRIL 5 MG CAPSULE PO SCH (09:45)
[2020-11-10] MEDS: CARVEDILOL 12.5 MG TABLET PO SCH ×2 (09:46→16:15)
[2020-11-10] MEDS: TERAZOSIN HCL 5 MG CAPSULE PO SCH (09:47)
[2020-11-10] MEDS: TICAGRELOR 90 MG TABLET PO SCH (09:47)
[2020-11-10] MEDS: ASPIRIN EC 81 MG TABLET.DR PO SCH (09:47)
[2020-11-10] MEDS: TAMSULOSIN 0.4 MG CAP.SR.24H PO SCH (09:48)
[2020-11-10] MEDS: DILTIAZEM HCL CD 120 MG PO SCH ×2 (09:48→21:00)
[2020-11-10] MEDS: CLOTRIMAZOLE 1% 15 GM TUBE TP SCH ×2 (09:49→16:07)
[2020-11-10] MEDS: FUROSEMIDE 20 MG TABLET PO SCH (09:49)
[2020-11-10 12:00] VITALS: BP_SYST 85; BP_SYST 98; BP_DIAS 34; BP_DIAS 62
[2020-11-10 16:00] VITALS: BP_SYST 89; BP_SYST 90; BP_DIAS 45; BP_DIAS 58
[2020-11-10] MEDS: ATORVASTATIN 40 MG TABLET PO SCH (17:27)
--- NOTE | 2020-11-10 18:51 | NUR ---
supervisor machine workers closing notes Patient is in bed resting, able to be awakened. Alert and oriented X3, , Irish-speaking, understands some Kiswahili, able to make needs known. Breathing is even and unlabored, on 4L O2 via simple mask, no respiratory distress. On Tele monitoring, reading of SR, HR at 70's, no cardiac distress. IV line on RFA #20 intact and patent. Spoke w/ daughter today and requested if something can be given to patient for complaint of heartburn; Dr. Burger made aware w/ orders noted. Due meds given during the shift. Safety precautions maintained: bed at lowest position, brakes locked, side rails up X2, call light is within reach. Will endorse to mine shifter rn for iglesia.
[2020-11-10 20:00] VITALS: BP 100/51
--- NOTE | 2020-11-10 20:00 | NUR ---
RN OPENING NOTE RECEIVED PATIENT IN BED. ALERT, VERBALLY RESPONSIVE. ON O2 VIA SIMPLE MASK AT 4L . DENIES ANY SOB. NO RESP DISTRESS NOTED. TELE READING SINUS RHYTHM. DENIES ANY PAIN. IV ON RFA PATENT AND INTACT, FLUSHED ASEPTICALLY. NO SIGNS OF INFECTION. ISOLATION PRECAUTION FOR COVID OBSERVED. ALL SAFETY MEASURES IMPLEMENTED PER PROTOCOL. BED LOCKED IN LOWEST POSITION. CALL LIGHT WITHIN REACH. SIDE RAILS UP X 2. WILL CONTINUE TO MONITOR
[2020-11-10] MEDS: SUCRALFATE 1 G TABLET PO SCH (21:43)
[2020-11-10] MEDS: ENOXAPARIN SODIUM 40 MG/0.4 ML DISP.SYRIN SQ SCH (21:47)
[2020-11-10] MEDS: INSULIN GLARGINE, 100 UNIT/ML CARTRIDGE SQ SCH (22:41)
[2020-11-11] VITALS: BP 94/43
[2020-11-11] MEDS: BLOOD SUGAR DIAGNOSTIC 1 EACH STRIP IN SCH ×4 (00:56→12:33)
[2020-11-11 04:00] VITALS: BP 101/50
--- NOTE | 2020-11-11 06:59 | NUR ---
ADDENDUM IV SITE PATENT AND INTACT. NO SIGNS OF INFILTRATION. ALL SAFETY MEASURES WERE IMPLEMENTED PER PROTOCOL. SIDE RAILS UP X2, BED LOCKED IN LOWEST POSITION. CALL LIGHT WITHIN REACH.
--- NOTE | 2020-11-11 06:59 | NUR ---
RN NOTES PATIENT REMAINS IN BED. BREATHING EVEN AND UNLABORED. CONTINUE ON O2 VIA MASK AT 4LPM. NO DISTRESS NOTED. TELE MONITOR SHOW SR 74. DENIES PAIN AT THIS TIME. LAST BS WAS 113. PT WITH NO URINE OUTPUT, ENCOURAGED PT TO INCREASE FLUID INTAKE. ABDOMEN SOFT AND NONDISTENDED. IV SITE W/NO REDNESS/
[2020-11-11] MEDS ORDERED: PANTOPRAZOLE 40 MG TABLET.DR PO SCH (07:30)
[2020-11-11 08:00] VITALS: BP 106/59
[2020-11-11] MEDS: SUCRALFATE 1 G TABLET PO SCH ×2 (08:02→12:37)
[2020-11-11] MEDS: GLUCERNA SHAKE 237 ML CAN PO SCH (08:02)
[2020-11-11] MEDS: RAMIPRIL 5 MG CAPSULE PO SCH (08:45)
[2020-11-11] MEDS: TICAGRELOR 90 MG TABLET PO SCH (08:46)
[2020-11-11] MEDS: ASPIRIN EC 81 MG TABLET.DR PO SCH (08:46)
[2020-11-11] MEDS: CARVEDILOL 12.5 MG TABLET PO SCH (08:47)
[2020-11-11] MEDS: TAMSULOSIN 0.4 MG CAP.SR.24H PO SCH (08:47)
[2020-11-11] MEDS: TERAZOSIN HCL 5 MG CAPSULE PO SCH (08:47)
[2020-11-11] MEDS: CLOTRIMAZOLE 1% 15 GM TUBE TP SCH (08:48)
[2020-11-11] MEDS: FUROSEMIDE 20 MG TABLET PO SCH (08:48)
[2020-11-11] MEDS: DILTIAZEM HCL CD 120 MG PO SCH (08:48)
[2020-11-11 12:00] VITALS: BP 94/55
[2020-11-11] MEDS: INSULIN REGULAR, HUMAN 100 UNIT/ML 3 ML VIAL SQ PRN (12:37)
[2020-11-11] MEDS ORDERED: CLOT15CR35 TP (12:43)
[2020-11-11] MEDS ORDERED: PANT40TA2 PO (12:43)
[2020-11-11] MEDS ORDERED: SUCR1TAB PO (12:43)
--- NOTE | 2020-11-11 15:00 | NUR ---
LOCAL INTERMODAL TRUCK DRIVERFACTORY SUPERVISOR NOTES D/C ORDER RECEIVED FROM LESLEY TAMAYO. PATIENT AND FAMILY NOTIFIED OF DISCHARGE HOME / SELF CARE WITH OXYGEN. PATIENT IN STABLE CONDITION FOR D/C. MEDICATION, DISCHARGE INSTRUCTIONS AND EDUCATION PROVIDED TO PATIENT. BELONGINGS CHECKED AND SIGNED. SKIN CHECK DONE, PHOTOS OF SCROTUM TAKEN. NO FC IN PLACE. PATIENT WAS TAKEN VIA GURNEY BY 2 AMBULANCE PERSONNEL. PT LEFT WITH TELE MONITOR ON AND IV TO RFA#2O IN PLACE. CONTACTED PATIENTS DAUGHTER MAYUR WHO IS A PHYSICIAN AND NOTIFIED HER OF THIS SHE CONTACTED AMBULANCE PERSONNEL WHO STATED THEY WOULD COME BACK AND DROP OFF THE TELE MONITOR. PER DTR SHE WILL REMOVE IV TO RFA. CHARGE NURSE AWARE.
== END 2020-11-11 15:19 | disposition home health service (06) | DRG 177 ==
LOC: ER 14:52 → TRANSITION 17:10 → TELE1 17:23 → TELE-TD 18:46 → TELE1 18:49 → UNDODISIN 11-05 19:55
PROVIDERS: ADMIT Internal Medicine; ATTEND Nurse Practitioner Acute Care
PROC: XW033E5 Introduction of Remdesivir Anti-infective into Peripheral Vein, Percutaneous Approach, New Technology Group 5 (ICD-10-PCS; principal; 2020-10-28)
PROC: XW13325 Transfusion of Convalescent Plasma (Nonautologous) into Peripheral Vein, Percutaneous Approach, New Technology Group 5 (ICD-10-PCS; 2020-11-02)
DX: U07.1 COVID-19 (principal); J12.89 Other viral pneumonia; J96.01 Acute respiratory failure with hypoxia; I50.33 Acute on chronic diastolic (congestive) heart failure; J15.9 Unspecified bacterial pneumonia; D68.69 Other thrombophilia; E22.2 Syndrome of inappropriate secretion of antidiuretic hormone; I48.91 Unspecified atrial fibrillation; I25.10 Atherosclerotic heart disease of native coronary artery without angina pectoris; E87.6 Hypokalemia; E66.9 Obesity, unspecified; E11.65 Type 2 diabetes mellitus with hyperglycemia; E78.5 Hyperlipidemia, unspecified; N40.0 Benign prostatic hyperplasia without lower urinary tract symptoms; Z68.27 Body mass index [BMI] 27.0-27.9, adult; R74.01 Elevation of levels of liver transaminase levels; I11.0 Hypertensive heart disease with heart failure; Z79.4 Long term (current) use of insulin
CPT/HCPCS: 36415; 36600; 71045-TC; 80048-TC; 80076-TC; 80202-TC; 81001; 82728-TC; 82803-TC; 82962-TC; 83605-TC; 83615-TC; 83735-TC; 84100-TC; 84484-TC; 85025-TC; 85378-TC; 85610-TC; 85730-TC; 86140-TC; 86850-TC; 87040-TC; 87081-TC; 87086-TC; 94799-TC; A4216; G0378; J0456; J0692; J0696; J1100; J1650; J1815; J3370; J3475; J3480; J7050; J7060; P9017-BL; U0003